=== PATIENT | female | born 1960 | race Caucasian/White ===

== ENCOUNTER 2021-08-18 06:36 | Inpatient (IN) | payer MEDICAID, SELFPAY ==
[2021-08-18] VITALS (69 sets, daily range): BP systolic 81–157; BP diastolic 55–111; PULSE 96–134; RESP 18–35; TEMP 36.4–37.7; O2SAT 94–100; BMI 25.2
--- NOTE | 2021-08-18 | ECHO_ITS ---
Patient Info Name: Kailyn Holder Age: 60 years : 1960 Gender: Female Ht: 57 in Wt: 145 lbs BSA: 1.66 m2 HR: 98 bpm BP: 96 / 82 mmHg Heart Rhythm: Tachycardia, Sinus Rhythm Technical Quality: Poor Exam Date: 08/18/2021 11:22 AM Exam Location: [facility] Pulmonary Exam Room: ER Patient Status: Inpatient Admit Date: 08/18/2021 Staff Ordering Physician: Betito Posadas MD Clinical Material Handler: Shadia Sanches RDCS Attending Provider: Durga Hancock MD Referring Physician: Cuauhtemoc RAMOS; Exam Type: CA echo doppler color flow Study Info Indications - ACS RESP FAILURE ELEVATED TROPONINS Complete two-dimensional, color flow and Doppler transthoracic echocardiogram is performed with contrast to opacify the left ventricle and to improve the deliniation of the left ventricle endocardial borders. Contrast/Agitated Saline Contrast/Ag. Saline: Definity Amount: 2.00 ml Administered By: Shadia Sanches [facility] Existing IV Access: Yes Reason for Poor Study: poor echocardiographic windows Summary 1. Left ventricular chamber dimension is normal. 2. Left ventricular systolic function is severely reduced, estimated at 25-30% with akinetic apical and mid segments with relative sparing of the bases. Consider Takotsubo cardiomyopathy. . 3. There is mildly increased left ventricular wall thickness. 4. The left ventricular diastolic function is abnormal. 5. There is no thrombus visualized in the left ventricle. Left Ventricle Left ventricular chamber dimension is normal. Left ventricular systolic function is severely reduced, estimated at 25-30% with akinetic apical and mid segments with relative sparing of the bases. Consider Takotsubo cardiomyopathy. . There is mildly increased left ventricular wall thickness. The left ventricular diastolic function is abnormal. There is no thrombus visualized in the left ventricle. Right Ventricle Right ventricular chamber dimension is normal. Right ventricular systolic function is normal. Left Atria Left atrial chamber dimension is normal. Right Atria Right atrial chamber dimension is normal. Aortic Valve The aortic valve is not well visualized. There is no aortic valve stenosis. There is no aortic valve regurgitation. Pulmonic Valve The pulmonic valve is not well visualized. Mitral Valve The mitral valve has normal leaflets. There is mild mitral valve regurgitation. The mitral valve annulus is mildly calcified. Tricuspid Valve The tricuspid valve leaflets are not well visualized. Unable to estimate PA systolic pressure due to poor spectral resolution of tricuspid regurgitant jet velocity. Pericardium/Pleural The pericardium appears normal. There is small pericardial effusion. Inferior Vena Cava Normal inferior vena cava with <50% collapse upon inspiration consistent with elevated right atrial pressure, 10 mmHg. Aorta The aortic root size at the sinus of Valsalva is normal. Left Ventricular Outflow Tract Name Value Normal LVOT 2D LVOT Diameter 2.0 cm LVOT Doppler LVOT Peak Gradient
--- NOTE | ~2021-08-18 | XR_ITS ---
EXAMINATION: XR chest 1V portable INDICATION: Respiratory failure TECHNIQUE: Portable AP chest at 0505 hours COMPARISON: 08/19/2021 FINDINGS: The endotracheal tube ends approximately 3.0 cm above the marylou. The nasogastric tube is f ollowed as far as the stomach. Its tip is beyond the inferior margin of the radiograph. The lungs are free of acute opacities. There is no pleural effusion or pneumothorax. The cardiomediastinal silhoue tte is normal. A calcified nodule of the left lower lobe is consistent with old granulomatous disease . IMPRESSION: 1. No acute cardiopulmonary abnormality. Reviewed, dictated and finalized at location A.
--- NOTE | ~2021-08-18 | XR_ITS ---
EXAMINATION: XR chest 1V portable INDICATION: Respiratory failure TECHNIQUE: Portable AP chest at 0525 hours COMPARISON: 08/20/2021 FINDINGS: The endotracheal tube ends approximately 1.7 cm above the marylou. The nasogastric tube is f ollowed as far as the stomach. Its tip is beyond the inferior margin of the radiograph. A right upper extremity PICC ends with its tip in the distal superior vena cava. The lungs are free of acute opaci ties. There is no pleural effusion or pneumothorax. The cardiomediastinal silhouette is normal. A davida cified nodule of the left lower lobe is consistent with old granulomatous disease. IMPRESSION: 1. No acute cardiopulmonary abnormality. Reviewed, dictated and finalized at location A.
--- NOTE | ~2021-08-18 | US_ITS ---
US abdomen limited DATE: 08/23/2021 09:27 INDICATION: Elevated liver enzymes TECHNIQUE: Real-time imaging and Doppler analysis COMPARISON: None FINDINGS: There is hepatic steatosis. No hepatic space-occupying mass lesion is evident. Normal hepat opedal portal venous flow direction. The pancreas is obscured by bowel gas. Some sludge is identified within the gallbladder. No gallstones or gallbladder wall thickening are no poli. Negative sonographic Pérez's sign. The common bile duct measures 6.8 mm, borderline in this patient of 60 years age. Recommend correlati on with serum bilirubin level. IMPRESSION: Gallbladder sludge Borderline common bile duct size at 6.8 mm; recommend correlation with serum bilirubin level Pancreas is obscured by bowel gas; this would be better evaluated by CT abdomen examination Reviewed, dictated and finalized at Location A. Reviewed, dictated and finalized at location A. IMPRESSION: Gallbladder sludge Borderline common bile duct size at 6.8 mm; recommend correlation with serum bi lirubin level Pancreas is obscured by bowel gas; this would be better evaluated by CT abdomen examination
--- NOTE | ~2021-08-18 | XR_ITS ---
EXAMINATION: XR chest ET placement, XR abdomen NG/feed tube insert DATE: 08/18/2021 13:00 INDICATION: Endotracheal tube placement. Orogastric tube insertion. TECHNIQUE: 1. Frontal view of the chest was obtained. 2. Frontal view of the abdomen was obtained. COMPARISON: Chest radiograph dated 08/18/21 FINDINGS: Chest: Endotracheal tube tip 5.2 cm above the marylou. Large calcified granuloma in the left lower lung zone. No other airspace opacities, pulmonary edema, pleural effusion or pneumothorax. The cardiomediastina l silhouette is normal. Abdomen: Nasogastric tube tip in proximal side port in the body of the stomach. No dilated loops of gas-filled bowel to suggest obstruction. Excreted contrast at the bilateral renal collecting systems related to the prior contrast-enhanced chest CT. IMPRESSION: 1. Nasogastric tube and endotracheal tube in expected positions. 2. No acute cardiopulmonary disease. Reviewed, dictated and finalized at location A. IMPRESSION: 1. Nasogastric tube and endotracheal tube in expected positions. 2. No acute cardiopulmonary disease.
--- NOTE | ~2021-08-18 | XR_ITS ---
EXAMINATION: XR chest 1V portable INDICATION: Respiratory failure TECHNIQUE: Portable AP chest at 0505 hours COMPARISON: 08/18/2021 FINDINGS: The endotracheal tube ends approximately 4.1 cm above the marylou. The nasogastric tube is f ollowed as far as the stomach. Its tip is beyond the inferior margin of the radiograph. The lungs are free of acute opacities. There is no pleural effusion or pneumothorax. The cardiomediastinal silhoue tte is normal in a calcified nodule of the left lower lobe is consistent with old granulomatous disea se. IMPRESSION: 1. No acute cardiopulmonary abnormality. Reviewed, dictated and finalized at location A.
--- NOTE | ~2021-08-18 | XR_ITS ---
EXAMINATION: XR chest 1V portable INDICATION: Respiratory failure TECHNIQUE: Portable AP chest at 0516 hours COMPARISON: 08/21/2021 FINDINGS: The endotracheal tube ends approximately 3.4 cm above the marylou. The nasogastric tube is f ollowed as far as the stomach. Its tip is beyond the inferior margin of the radiograph. A right upper extremity PICC ends with its tip in the distal superior vena cava. The lungs are free of acute opaci ties. There is no pleural effusion or pneumothorax. The cardiomediastinal silhouette is normal. A davida cified nodule of the left lower lobe is consistent with old granulomatous disease. IMPRESSION: 1. No acute cardiopulmonary abnormality. Reviewed, dictated and finalized at location A.
--- NOTE | ~2021-08-18 | XR_ITS ---
EXAMINATION: XR chest PICC line INDICATION: PICC insertion TECHNIQUE: Portable AP chest at 1056 hours COMPARISON: 1017 hours FINDINGS: A right upper extremity PICC has been inserted which ends with its tip in the distal superi or vena cava. There is no pneumothorax. The lungs are free of acute opacities. The cardiomediastinal silhouette silhouette is normal. The endotracheal tube ends approximately 3.1 cm above the marylou. Th e nasogastric tube is followed as far as the stomach. Its tip is beyond the inferior margin of the ra diograph. A calcified nodule of the left lower lobe is consistent with old granulomatous disease. IMPRESSION: 1. Right upper extremity PICC ending in the distal superior vena cava, otherwise no change. Reviewed, dictated and finalized at location A. IMPRESSION: 1. Right upper extremity PICC ending in the distal superior vena cava, otherwis e no change.
--- NOTE | ~2021-08-18 | CT_ITS ---
EXAMINATION: CTA chest PE protocol DATE: 08/18/2021 10:44 INDICATION: Shortness of breath TECHNIQUE: Computed tomography angiography (CTA) of the chest was performed with 100 mL Omnipaque-350 intravenous contrast timed to evaluate the pulmonary arteries. Coronal maximum intensity projection 3D-reconstructions were created by the technologist. The dose-length product (DLP) was 270.48 mGy-cm. Automated exposure control and iterative reconstruction technique were employed. COMPARISON: None. FINDINGS: The pulmonary arteries are well-opacified. No pulmonary embolism is identified. There is a 2.4 cm granuloma of the left lower lobe. There is a 3.6 x 3.0 cm subsolid nodule of the right upper l obe with a 1.5 cm solid component. No pathologically enlarged thoracic lymph nodes are identified. Th e heart size is normal. There is no pleural effusion or pneumothorax. There is mild thoracic spondylo sis. IMPRESSION: 1. No pulmonary embolus. 2. Subsolid nodule of the right upper lobe which could be infectious or inflammatory. Follow-up CT in three months is recommended. 3. Left lower lobe granuloma. Reviewed, dictated and finalized at location A. IMPRESSION: 1. No pulmonary embolus. 2. Subsolid nodule of the right upper lobe which could be infectious or inflamm atory. Follow-up CT in three months is recommended. 3. Left lower lobe granuloma.
--- NOTE | ~2021-08-18 | XR_ITS ---
EXAMINATION: XR chest 1V portable INDICATION: Hypotension TECHNIQUE: Portable AP chest at 1017 hours COMPARISON: 0505 hours FINDINGS: The endotracheal tube ends approximately 4.6 cm above the marylou. The nasogastric tube is f ollowed as far as the stomach. Its tip is beyond the inferior margin of the radiograph. The lungs are free of acute opacities. There is no pleural effusion or pneumothorax. The cardiomediastinal silhoue tte is normal. A calcified nodule of the left lower lobe is consistent with old granulomatous disease . IMPRESSION: 1. No acute cardiopulmonary abnormality. Reviewed, dictated and finalized at location A.
--- NOTE | ~2021-08-18 | XR_ITS ---
EXAMINATION: XR chest 1V portable INDICATION: Shortness of breath TECHNIQUE: Portable AP chest at 0710 hours COMPARISON: None available FINDINGS: There is mild atelectasis of the lung bases. There is a 2.7 cm nodule of the left lung base . There is no pleural effusion or pneumothorax. The cardiomediastinal silhouette is normal. IMPRESSION: 1. Mild atelectasis of the lung bases. 2. Nodule of the left lung base, possible granuloma. Follow-up with nonemergent chest CT is recommend ed. Reviewed, dictated and finalized at location A. IMPRESSION: 1. Mild atelectasis of the lung bases. 2. Nodule of the left lung base, possible granuloma. Follow-up with nonemergent chest CT is recommended.
--- NOTE | 2021-08-18 06:38 | ECG_ITS ---
Measurements Intervals [place] Rate: 133 P: 86 TN: 165 QRS: 88 QRSD: 81 T: 83 QT: 370 QTc: 551 Interpretive Statements SINUS TACHYCARDIA ANTEROSEPTAL INFARCT, AGE INDETERMINATE BASELINE ARTIFACT- I, II, III, AVR, AVL, AVF, V1-V6 ABNORMAL ECG Electronically Signed On 08-18-2021 7:47:24 CDT by Ryne Hickey D.O.
--- NOTE | 2021-08-18 06:41 | ED.GENADULT ---
HPI - General Adult General Chief complaint: Shortness of Breath/Dyspnea <Gael King MD - Last Filed: 08/18/21 19:19> Stated complaint: SOB <Gael King MD - Last Filed: 08/18/21 19:19> Time Seen by Provider: 08/18/21 06:40 <Gael King MD - Last Filed: 08/18/21 19:19> Source: patient, family, EMS and RN notes reviewed <Gael King MD - Last Filed: 08/18/21 19:19> Mode of arrival: EMS <Gael King MD - Last Filed: 08/18/21 19:19> Limitations: clinical condition <Gael King MD - Last Filed: 08/18/21 19:19> History of Present Illness HPI narrative: 60-year-old female presenting the emergency department for evaluation of shortness of breath. States her symptoms started approximately 9 PM last night. Patient has no prior history of COPD and is not on oxygen at home. When EMS arrived she was saturating at 80% on room air. Patient was given 4 of Decadron and given to breathing treatments of albuterol. Patient was placed on a nonrebreather. Upon arrival to the emergency department patient was speaking in one-word sentences. Patient denies any prior history of COPD. Patient is a smoker. <Gale King MD - Last Filed: 08/18/21 19:19> Related Data Allergies/adverse reactions: Allergies Allergy/AdvReac Type Severity Reaction Status Date / Time No Known Allergies Allergy Verified 08/18/21 06:53 <Gael King MD - Last Filed: 08/18/21 19:19> Review of Systems Review of Systems: CONSTITUTIONAL: Denies fever, chills, or sweats. EYES: Denies visual changes, redness, or discharge. ENT: Denies rhinorrhea, congestion, sore throat, or otalgia. CARDIOVASCULAR: Denies chest pain, palpitations, or edema. RESPIRATORY: See HPI GASTROINTESTINAL: Denies abdominal pain, nausea, vomiting, or diarrhea. GENITOURINARY: Denies dysuria or hematuria. SKIN: Denies rash or itching. MUSCULOSKELETAL: Denies back pain, joint pain, or myalgia. NEUROLOGIC: Denies headache, numbness, or weakness. <Gael King MD - Last Filed: 08/18/21 19:19> ROS unobtainable: Yes unobtainable due to medical condition <Gael King MD - Last Filed: 08/18/21 19:19> [facility] Past Medical History Medical History: Medical History No pertinent past medical history <Gael King MD - Last Filed: 08/18/21 19:19> Family History Family History: Family History Father Acute myocardial infarction Diabetes mellitus <Gael King MD - Last Filed: 08/18/21 19:19> Social History Social History: Social History Smoking packs per day: 0.5 Smoking cigarettes per day: 10.0 Smoking status: Current every day smoker Tobacco type: cigarettes Alcohol intake: current Drinks per week: 10 Substance use: never Spiritual care concerns: No <Gael King MD - Last Filed: 08/18/21 19:19> Exam Narrative: APPEARANCE: Respiratory distress HEAD: normocephalic, atraumatic. EYES: PERRLA/EOMI, conjunctivae clear. NOSE: Normal no drainage NECK: Supple. No adenopathy, no masses. RESPIRATORY: Wheeze bilaterally, decreased breath sounds CARDIOVASCULAR: Tachycardic with regular rhythm ABDOMINAL: Soft, nontender, nondistended, normal bowel sounds MUSCULOSKELETAL: Moves all extremities. Strength/ROM intact, No edema, No calf tenderness. NEURO: Alert. Cranial nerves II through XII intact. Grossly intact SKIN: Warm, dry. Normal Color <Gael King MD - Last Filed: 08/18/21 19:19> Course Course Emergency Course: Patient was placed on BiPAP and a continuous neb of 10 mg albuterol 2 mg Atrovent was started <Gael King MD - Last Filed: 08/18/21 19:19> I assumed care of this patient at shift change with pending labs, x-rays. Patient was placed on BiPAP. I reexamined t
[2021-08-18 06:50] LABS: Basophils Absolute Auto 0.1 K/mm3 (0.0-0.1); Basophils Percent Auto 0.4 % (0.2-1.2); Eosinophils Percent Auto 0.1 % (0-4.4); Hematocrit 43.4 % (37.0-47.0); Hemoglobin 14.4 g/dL (12.0-15.0); Immature Granulocyte Absolute 0.16 K/mm3 (0.00-0.031); Immature Granulocyte Percent A 0.6 % (0-0.5); Lymphocytes Percent Auto 10.1 % (18.3-44.2); Mean Corpuscular HGB Conc 33.2 g/dl (32-36); Mean Corpuscular Hemoglobin 31.2 pg (26-34); Mean Corpuscular Volume 94.1 fl (80-100); Mean Platelet Volume 9.4 fl (7.4-10.4); Monocytes Absolute Auto 0.6 K/mm3 (0.1-0.6); Monocytes Percent Auto 2.4 % (2.6-8.5); Neutrophils Absolute Auto 23.1 K/mm3 (1.3-6.7); Neutrophils Percent Auto 86.4 % (45.5-73.1); Platelet Count Result 306 k/mm3 (150-375); Red Blood Count 4.61 M/mm3 (4.2-5.4); Red Cell Distribution Width 13.1 % (11.5-14.5); White Blood Count 26.7 K/mm3 (4.5-10.0)
[2021-08-18] MEDS: ALBUTEROL SULFATE NEB 2.5 MG/0.5 ML INH 10 MG INHALATION (06:53)
[2021-08-18] MEDS: IPRATROPIUM BR 0.02% INH SOLN 0.5 MG/2.5 ML VIAL 2 MG INHALATION (06:54)
[2021-08-18] MEDS: SODIUM CHLORIDE 0.9% IV 1,000 ML 999 ML IV CONT (06:54)
[2021-08-18 07:00] LABS: Alanine Aminotransferase 26 U/L (6-35); Albumin Level 4.9 g/dL (3.5-5.1); Alkaline Phosphatase 100 U/L (38-126); Anion Gap 13 mmol/L (8-16); Aspartate Amino Transferase 41 U/L (14-36); Bilirubin,Total 0.8 mg/dL (0.2-1.3); Blood Urea Nitrogen 12 mg/dL (7-17); Calcium 9.1 mg/dL (8.4-10.2); Carbon Dioxide 21 mmol/L (22-30); Chloride 106 mmol/L (98-107); Estimated CRCL calculation 57 ml/min; Estimated Glomerular Filt Rate > 60; Glucose 266 mg/dL (65-110); Potassium 3.8 mmol/L (3.4-5.0); Sodium 140 mmol/L (137-145)
--- NOTE | 2021-08-18 07:21 | ECG_ITS ---
Measurements Intervals [place] Rate: 122 P: 77 MD: 167 QRS: 95 QRSD: 78 T: 85 QT: 414 QTc: 592 Interpretive Statements SINUS TACHYCARDIA RIGHT AXIS DEVIATION SUBTLE ST ELEVATION IN ANTERIOR LEADS- CONSIDER ACUTE INFARCT BASELINE ARTIFACT- I, II, III, AVR, AVL, AVF, V1-V6 ABNORMAL ECG Electronically Signed On 08-18-2021 7:52:25 CDT by Ryne Hickey D.O.
[2021-08-18 07:31] LABS: Alveolar/Arterial O2 Gradient 303.8 mmHg; Base Excess ABG -7.7 mEq/l (+/-2.0); Fractional Inspired Oxygen 100 %; HCO3 ABG 18.6 mEq/l (22.0-26.0); Oxygen Content ABG 18.9 %vol (16.0-22.0); Oxygen Saturation ABG 99.7 % (95.0-100.0); Oxyhemoglobin 98.3 % THb (90.0-100.0); PCO2 ABG 40.3 mmHg (35.0-45.0); PO2 ABG 368.9 mmHg (80.0-100.0); PO2 FiO2 Ratio Arterial Blood 3.69 %
[2021-08-18 07:32] LABS: Device BIPAP; Expiratory Pressure 7 cmH2O; Inspiratory Pressure 14 cmH2O; Modified Allen's Test Pass; Site Drawn RIGHT RADIAL; pH ABG 7.281 (7.350-7.450)
[2021-08-18 07:49] LABS: NT Pro B Type Natriuretic Pept 708 pg/mL (5-100)
[2021-08-18 07:55] LABS: SARS-CoV-2 RNA PCR Negative
[2021-08-18] MEDS: ASPIRIN 81 MG CHEWABLE TABLET 324 MG PO (08:43)
--- NOTE | 2021-08-18 08:50 | ECG_ITS ---
Measurements Intervals [place] Rate: 110 P: 75 NE: 140 QRS: 85 QRSD: 84 T: 91 QT: 306 QTc: 416 Interpretive Statements SINUS TACHYCARDIA ST ELEVATION IN ANTERIOR LEADS- CONSIDER ACUTE INFARCT BASELINE ARTIFACT- I, II, III, AVR, AVL, AVF, V3-V6 ABNORMAL ECG Electronically Signed On 08-20-2021 9:16:13 CDT by Ryne Hickey D.O.
--- NOTE | 2021-08-18 09:33 | PM.CNCAR ---
Assessment and Plan Assessment and plan (1) Acute coronary syndrome with high troponin: Code(s): I24.9 - Acute ischemic heart disease, unspecified Status: Acute Assessment and Plan: Unusual presentation with highly atypical symptoms without chest pain at any time with EKG evidence of anteroseptal ID possibly recent with residual subtle ST elevations possibly consistent with late presentation STEMI. Complicated by acute hypoxic respiratory failure requiring BiPAP support. Troponin elevated 3.7. Trend serially. Repeat 12 lead EKG reviewed no changes since presentation. Discussed with Dr. Roe of Interventional Cardiology regarding recommendations for coronary angiography. Dr. Roe will also personally evaluate the patient at bedside and make a final determination. Aspirin, statin, respiratory support, systemic anticoagulation. Discussed with the patient, mother and daughter at bedside. Risks, benefits, and alternatives of coronary angiography explained in detail including but not limited to bleeding/infection, ID, stroke, and/or . They verbalized understanding and agreed with plan of care. Explained I would will discuss with Dr. Roe with his recommendations to follow. All questions answered to their satisfaction. 2D echocardiogram now to assess LV size/function, valve pathology pulmonary pressures. This is an unusual presentation however given the balance of abnormalities concern for subacute STEMI versus NSTEMI. Patient is quite ill. Recommendation to follow. Check lipid panel. (2) Abnormal ECG: Code(s): R94.31 - Abnormal electrocardiogram [ECG] [EKG] Status: Acute Assessment and Plan: As above, suggestive of anteroseptal ID possibly recent with residual subtle ST-elevation (3) Acute respiratory distress: Code(s): R06.03 - Acute respiratory distress Status: Acute Assessment and Plan: Continue supportive management with bronchodilators, BiPAP, O2 supplementation. Patient may be best served with intubation prior to proceeding with coronary angiography for improved clinical stability. BNP mildly elevated at 705 although chest x-ray is not consistent with significant volume overload. Trial of diuretics reasonable 40 mg Lasix IV x1. (4) Tobacco abuse: Code(s): Z72.0 - Tobacco use Status: Acute Assessment and Plan: Immediate and absolute smoking cessation counseling performed. (5) Hyperglycemia: Code(s): R73.9 - Hyperglycemia, unspecified Status: Acute Assessment and Plan: Workup per hospitalist service. May be exacerbated due to acute illness although concerning for underlying diabetes mellitus. Check hemoglobin A1c. (6) Hypertension: Code(s): I10 - Essential (primary) hypertension Status: Acute Assessment and Plan: Elevated but stable at present. (7) Leukocytosis: Code(s): D72.829 - Elevated white blood cell count, unspecified Status: Acute Assessment and Plan: Significant leukocytosis with left shift concerning for infectious process with reported chills although infiltrate noted appreciated chest x-ray. Monitor closely. History of Present Illness History of Present Illness Consult date/time: Date of service: 08/18/21 09:33 Cardiology consultation at the request of Dr. Garcias of Emergency Department for elevated troponin, abnormal EKG Requesting physician: Aristeo Garcias MD Consult reason: shortness of breath and Other (Elevated troponin, abnormal EKG) Reason For Visit: Nstemi, respiratory distress Narrative: Patient is a very pleasant 60-year-old female with no noted significant past medical history aside from tobacco abuse presents emergency department with progressive shortness of breath. Patient states yesterday around 2:00 p.m. she began to note nasal and head congestion which then later progressed throughout the afternoon and evening shortness of breath, chills,
--- NOTE | 2021-08-18 09:34 | PC.NURSE ---
Cardiology at bedside.
[2021-08-18] MEDS: SODIUM CHLORIDE 0.9% IV 1,000 ML 150 ML IV CONT (10:05)
[2021-08-18] MEDS: PERFLUTREN LIPID MICROSPHERES 1.5 ML VIAL DILUTED TO 10 ML TOTAL VOLUME IV PUSH (11:35)
--- NOTE | 2021-08-18 11:35 | IVDEFINITY ---
Prior to administration of IV Definity the patient was educated on the risks and benefits of the imaging enhancing agent including potential adverse side effects. The patient verbalized understanding. Allergies were verified. No exclusion criteria were identified and at least one of the following inclusion criteria were met: 1) physician request, 2) patient technically difficult to image (per the [place] [employer] of Echocardiography guidelines of two or more segments not discernable within the apical view), or 3) questionable left ventricular function. ?
[2021-08-18] MEDS: IPRATROPIUM BR 0.02% INH SOLN 0.5 MG/2.5 ML VIAL INHALATION ×3 (11:48→20:33)
[2021-08-18] MEDS: ALBUTEROL SULFATE NEB 2.5 MG/3 ML INH 1.25 MG INHALATION (11:48)
--- NOTE | 2021-08-18 12:08 | PC.NURSE ---
This patient, Kailyn Holder, was admitted to Intensive Care Unit-2. Patient/family oriented to hospital policies and general routines including ID bracelet, bed and alarms, visiting hours, pain management, procedures, bathroom and other care routines, personal items, smoking policy, room service/diet, and visiting hours. Information on how to activate the Rapid Response Team has been discussed. Patient/Family are encouraged to report perceived risks to care and to ask questions if they do not understand what they are told or what they should do.
[2021-08-18] MEDS: ALBUTEROL SULFATE NEB 2.5 MG/0.5 ML INH 5 MG INHALATION ×2 (13:06→20:32)
--- NOTE | 2021-08-18 13:09 | WPDMODSED ---
Moderate Sedation Note-Pt Data Patient Data Diagnosis: Evidence of recent anterior wall MA patient developing picture of cardiogenic shock with intubation in the emergency room Present Complaint: intubated and sedated Procedure to be performed/Plan: left heart catheterization possible placement of Impella assist device Allergies Allergy/AdvReac Type Severity Reaction Status Date / Time No Known Allergies Allergy Verified 08/18/21 06:53 Current Medications: Active Medications Acetaminophen (Acetaminophen 325 Mg Tablet) 650 mg PO Q4H PRN PRN Reason: Mild Pain (1-3) or Fever Albuterol (Albuterol Sulfate Neb 2.5 Mg/0.5 Ml Inh) 5 mg INHALATION Q6HRT [facility] Last Admin: 08/18/21 13:06 Dose: 5 mg Documented by: Aspirin (Aspirin 81 Mg Chewable Tablet) 81 mg PO DAILY@0800 JENSEN Sodium Chloride (Normal Saline Iv) 1,000 mls @ 150 mls/hr IV CONT .Q6H40M STA Stop: 08/18/21 16:25 Last Admin: 08/18/21 10:05 Dose: 150 mls/hr Documented by: Sodium Chloride (Normal Saline Iv) 1,000 mls @ 125 mls/hr IV CONT .Q8H JENSEN Propofol (Diprivan) 100 mls @ 2.004 mls/hr IV CONT .[id number] JENSEN; Protocol Ipratropium [place] (Ipratropium Br 0.02% Inh Soln 0.5 Mg/2.5 Ml Vial) 0.5 mg INHALATION Q6HRT [facility] Last Admin: 08/18/21 13:06 Dose: 0.5 mg Documented by: Morphine Sulfate (Morphine Sulfate (*Crx) 4 Mg/Ml Inj) 4 mg IV PUSH Q2H PRN PRN Reason: Pain Rated 7-10 Multi-Ingred Cream/Lotion/Oil/Oint (Mineral Oil/White Petrolatum Ointment) 1 applic EACH EYE Q12HR [facility] Nitroglycerin (Nitroglycerin Sl 0.4 Mg Tablet) 0.4 mg SUBLINGUAL Q5MIN PRN PRN Reason: Chest Pain Nitroglycerin (Nitroglycerin Ointment 1 Inch Dose) 1 inch TRANSDERM Q6HR [facility] Ondansetron HCl (Ondansetron Inj 4 Mg/2 Ml Vial) 4 mg IV PUSH Q4H PRN PRN Reason: Nausea Sedation/Anesthesia: No previous sedation/anesthesia problems (including family history). [facility] Past Medical History Medical History No pertinent past medical history Family History Family History Father Acute myocardial infarction Diabetes mellitus Social History Social History Smoking packs per day: 0.5 Smoking cigarettes per day: 10.0 Smoking status: Current every day smoker Tobacco type: cigarettes Alcohol intake: never Substance use: never Mod Sed Physical Exam Physical Exam Pre Procedural Exam: Normal: Appearance, Throat, Airway, Heart Rhythm, Neuro Exam and Extremities ( cool) and Variation: Lungs ( diminished breath sounds bilaterally), Heart Size ( PMI enlarged) and Heart Rate ( tachycardic) Hours since solid foods: 8 Hours since liquid intake: 8 Mallampati Classification: class III Internal Medicine - PN: Obj Da Vital Signs Vital Signs: Vital Signs - 24 hr 08/18/21 06:33 08/18/21 06:40 08/18/21 06:54 Temperature 37.1 C Pulse Rate 134 H 133 H 124 H Respiratory Rate 34 H 25 H Blood Pressure 157/107 H Pulse Oximetry 96 100 08/18/21 06:57 08/18/21 07:28 08/18/21 07:30 Temperature Pulse Rate 118 H 115 H 123 H Respiratory Rate 26 H 24 H 33 H Blood Pressure 105/84 Pulse Oximetry 100 100 08/18/21 07:31 08/18/21 07:46 08/18/21 08:02 Temperature Pulse Rate 118 H 113 H Respiratory Rate 32 H 31 H 25 H Blood Pressure 125/83 Pulse Oximetry 100 100 100 08/18/21 08:15 08/18/21 08:16 08/18/21 08:34 Temperature Pulse Rate 107 H 106 H 104 H Respiratory Rate 23 H 23 H 22 H Blood Pressure 116/88 Pulse Oximetry 100 100 100 08/18/21 08:45 08/18/21 08:46 08/18/21 09:04 Temperature Pulse Rate 110 H 115 H 112 H Respiratory Rate 23 H 30 H 26 H Blood Pressure 109/86 Pulse Oximetry 100 100 100 08/18/21 09:15 08/18/21 09:16 08/18/21 09:30 Temperature Pulse Rate 108 H 108 H 124 H Respiratory Rate 31 H 24 H 23 H Blood Pressure 81/55 L 96/82 L Pulse Oximetry 100 100 100 05
[2021-08-18] MEDS: PROPOFOL IV EMULSION 100 ML 6.01 MG IV CONT (13:12)
--- NOTE | 2021-08-18 13:14 | WPDCNINT ---
Assessment and Plan Assessment and plan (1) Acute coronary syndrome with high troponin: Code(s): I24.9 - Acute ischemic heart disease, unspecified Status: Acute Assessment and Plan: Acute coronary syndrome with elevated troponins, likely STEMI late presentation -patient does not have any history of coronary artery disease -echocardiogram done today reveals severe cardiomyopathy -discussed with Cardiology, will intubate the patient, place her on the mechanical ventilation and then she will be taken to the cardiac grass farm laborer for evaluation of her coronary arteries. -patient was started on aspirin, statin, when she arrived to the ICU she was intubated emergently and was taken to cardiac grass farm laborer urgently so was not started on any heparin infusion (2) Acute respiratory failure: Code(s): J96.00 - Acute respiratory failure, unspecified whether with hypoxia or hypercapnia Status: Acute Assessment and Plan: Acute respiratory failure likely related to acute coronary syndrome, possible undiagnosed obstructive lung disease -patient has some expiratory wheezes -currently intubated on CMV mode of ventilation, 60% FiO2 and PEEP of 5 with adequate O2 sats -will start bronchodilators, steroids, antibiotics for possible undiagnosed obstructive lung disease exacerbation -sedated with propofol -maintain RASS of 0 to -2, daily sedation vacation Chest x-ray reviewed, will obtain post intubation ABGs 08/18/2021: CTA chest IMPRESSION: 1. No pulmonary embolus. 2. Subsolid nodule of the right upper lobe which could be infectious or inflammatory. Follow-up CT in three months is recommended. 3. Left lower lobe granuloma. (3) Tobacco abuse: Code(s): Z72.0 - Tobacco use Status: Acute Assessment and Plan: Patient was counseled on cessation of tobacco use and smoking marijuana (4) Cardiomyopathy: Code(s): I42.9 - Cardiomyopathy, unspecified Status: Acute Assessment and Plan: 08/18/2021 echocardiogram: 1. Left ventricular chamber dimension is normal. 2. Left ventricular systolic function is severely reduced, estimated at 25-30% with akinetic apical and mid segments with relative sparing of the bases. Consider Takotsubo cardiomyopathy. . 3. There is mildly increased left ventricular wall thickness. 4. The left ventricular diastolic function is abnormal. 5. There is no thrombus visualized in the left ventricle. Patient be taken to the grass farm laborer, may require balloon pump or Impella per Cardiology Will hold IV fluids (5) Hypertension: Code(s): I10 - Essential (primary) hypertension Status: Acute Assessment and Plan: Currently on propofol, blood pressures are stable, will continue to monitor (6) Leukocytosis: Code(s): D72.829 - Elevated white blood cell count, unspecified Status: Acute Assessment and Plan: Likely reactive Patient is started on ceftriaxone (7) Hyperglycemia: Code(s): R73.9 - Hyperglycemia, unspecified Status: Acute Assessment and Plan: Patient does not have any known diabetes, will obtained hemoglobin A1c -start Accu-Cheks and sliding scale insulin Additional Plan Discussed with patient and her mother Radha, updated them with patient's condition and plan of care. Both of them aware that patient will be getting intubated and going to cardiac grass farm laborer for a coronary angiogram. They are agreeable, will discussed with them that patient be sedated during the course of intubation and a cardiac procedure Code status: Full code Critical care time spent: 53 minutes This dictation may have been done utilizing a voice recognition system. Attempts have been made to correct errors. However, there may be uncorrected grammatical, spelling, and recognition errors present. Due to a high probability of clinically significant, life threatening deterioration, the patient required my highest level of preparedness to int
--- NOTE | 2021-08-18 13:55 | PM.IMHP ---
H&P: HPI History of Present Illness Date/Time: Patient requires inpatient monitoring with expected length of stay to exceed 2 midnights for management of care. 08/18/21 1245 Chief Complaint: Shortness of breath Narrative: Ms. Holder is a 60-year-old female who presented to the emergency room with complaints of shortness of breath began this morning very suddenly. It is difficult to get a full history from the patient since she is wearing BiPAP and states that it is difficult to talk. Patient states that she had a sudden onset of shortness of breath this morning but denies any chest pain, lightheadedness, dizziness, or palpitations. Patient denies having any past medical history. Patient states she does smoke half pack of cigarettes a day and has done so for 22 years. Upon evaluation in emergency room patient was noted to have an increased work of breathing and was placed on BiPAP. Patient was given multiple nebulizer treatments and had been given Decadron by EMS and brought to the hospital. Laboratories were drawn in the emergency room was noted the patient's troponin was elevated and Cardiology was consulted. Patient's EKG did show some questionable ST elevation in the anterior septal leads and an echo Doppler was performed. Is decided at that time patient may need to go to the cardiac catheterization lab emergently. Review of Systems Review of Systems: Unable to obtain a full review of systems secondary to patient's clinical condition. [facility] Past Medical History Medical History No pertinent past medical history Family History Family History Father Acute myocardial infarction Diabetes mellitus Social History Social History Smoking packs per day: 0.5 Smoking cigarettes per day: 10.0 Smoking status: Current every day smoker Tobacco type: cigarettes Alcohol intake: never Substance use: never Meds Home Medications and Allergies Allergies Allergy/AdvReac Type Severity Reaction Status Date / Time No Known Allergies Allergy Verified 08/18/21 06:53 Vital Signs Vital Signs - 24 hr 08/18/21 06:33 08/18/21 06:40 08/18/21 06:54 Temperature 37.1 C Pulse Rate 134 H 133 H 124 H Respiratory Rate 34 H 25 H Blood Pressure 157/107 H Pulse Oximetry 96 100 08/18/21 06:57 08/18/21 07:28 08/18/21 07:30 Temperature Pulse Rate 118 H 115 H 123 H Respiratory Rate 26 H 24 H 33 H Blood Pressure 105/84 Pulse Oximetry 100 100 08/18/21 07:31 08/18/21 07:46 08/18/21 08:02 Temperature Pulse Rate 118 H 113 H Respiratory Rate 32 H 31 H 25 H Blood Pressure 125/83 Pulse Oximetry 100 100 100 08/18/21 08:15 08/18/21 08:16 08/18/21 08:34 Temperature Pulse Rate 107 H 106 H 104 H Respiratory Rate 23 H 23 H 22 H Blood Pressure 116/88 Pulse Oximetry 100 100 100 08/18/21 08:45 08/18/21 08:46 08/18/21 09:04 Temperature Pulse Rate 110 H 115 H 112 H Respiratory Rate 23 H 30 H 26 H Blood Pressure 109/86 Pulse Oximetry 100 100 100 08/18/21 09:15 08/18/21 09:16 08/18/21 09:30 Temperature Pulse Rate 108 H 108 H 124 H Respiratory Rate 31 H 24 H 23 H Blood Pressure 81/55 L 96/82 L Pulse Oximetry 100 100 100 08/18/21 09:47 08/18/21 10:00 08/18/21 10:01 Temperature Pulse Rate 105 H 103 H 114 H Respiratory Rate 25 H 25 H 35 H Blood Pressure 104/83 Pulse Oximetry 100 100 98 08/18/21 10:28 08/18/21 10:30 08/18/21 10:31 Temperature Pulse Rate 97 101 H Respiratory Rate 21 H 26 H Blood Pressure 102/74 Pulse Oximetry 100 100 08/18/21 10:48 08/18/21 11:49 08/18/21 12:25 Temperature 36.4 C L Pulse Rate 114 H 105 H 118 H Respiratory Rate 26 H 24 H 35 H Blood Pressure 127/111 H Pulse Oximetry 100 100 100 08/18/21 12:29 08/18/21 12:33 08/18/21 13:03 Temperature 36.4 C L Pulse Rate
--- NOTE | 2021-08-18 14:07 | WPDPROCEDUR ---
Procedures Intubation Intubation Date: 08/18/21 Intubation Time: 12:45 A pre-procedural Time-Out was completed immediately before starting the procedure and confirmed: Patient Identification, Site, Procedure, Patient Position and the Availability of Requisite Equipment: Yes Sedative: etomidate Mg given: 20 Paralytic: rocuronium Mg given: 50 Laryngoscope: fiber optic video scope ET tube size: 7.5 Tube secured depth (cm): 23 Tube secured location: lips Tube placement confirmation: visualized tube passing through cords, equal breath sounds bilaterally and confirmation by capnometry Patient tolerated procedure: well and no complications Intubation complications: none Additional comments: [place] by Dr. Simons
[2021-08-18 14:23] LABS: Lactic Acid Reflex 3.5 mmol/L (0.7-2.0)
--- NOTE | 2021-08-18 14:32 | WPDCARDPROC ---
Cardiac Cath Procedure Note Date of procedure:: 08/18/21 Performing physician:: Adelfo Roe MD Indication:: shortness of breath, respiratory extremis and suspected recent anterior FL Brief clinical history:: this is a 60-year-old woman without previous medical history presented the hospital with severe shortness of breath. She was on a BiPAP device and then shortly following admission to the ICU required intubation. Electrocardiogram suggests that of previous anterior wall infarction has occurred. She is having no chest pain on arrival. Troponin levels are moderately elevated. In this setting an angiogram is being recommended. There is concern about the potential need for advanced hemodynamic support. Procedure Procedure performed:: Coronary angiography left ventriculography peripheral artery angiography Sedation/Medication given:: patient on IV propofol infusion no additional sedation provided in the pathology laboratory aides teacher case start time 1:49 p.m. case end time 2:14 p.m. Access site:: right femoral artery Estimated blood loss:: 25 cc Procedure note:: patient was brought to the cardiac catheterization lab from the ICU intubated and on ventilator support. The right femoral triangle was prepped and draped in the normal fashion. Anesthesia was given with 1% lidocaine. Following this right femoral artery was punctured and a 5 Tajik vascular sheath was placed. After this a 5 Tajik JR4 catheter was used to engage and inject the right coronary artery. A 5 Tajik FL4 catheter was used to engage and inject the left coronary artery. Following this a 5 Tajik angled pigtail catheter was used to measure left-sided hemodynamics and to inject LV g in the PANTOJA projection. Pullback pressures were documented across the aortic valve. Following this angiogram was done of the femoral through the sheath and then used the JR4 catheter to perform an angiogram of the left iliofemoral system from the aortic bifurcation. After this the case was terminated the patient was taken to the ICU for sheath removal and further treatment and recovery. Findings:: Central aortic pressure 116 over 74 left ventricle 116 over 16 end-diastolic pressure 40. No gradient on across the aortic valve. Left ventricle: The LV is mildly enlarged globular in shape the base of the anterior wall and base of the infero posterior wall contract well the remainder of the LV is totally akinetic the apex is frankly dyskinetic. Global ejection fraction I would visually estimate to be about 20%. The left main coronary artery is nicely patent the left anterior descending is a medium caliber artery extending down to around the apex. The LAD and its diagonal septal branches are smooth and angiographically normal in appearance circumflex is a moderate caliber artery giving rise to the marginal branches. The circumflex system is angiographically smooth and normal in appearance the right coronary artery is large in caliber in the trunk of the RCA and is smooth and angiographically normal. The RPDA and RPL branches are patent relatively small but free of disease. The right femoral artery following injection through the sheath is quite small in size and not suitable for accommodating a 14 Tajik sheath for Impella support catheter. Similarly they left iliofemoral system is small and again not suitable for large-bore access for fear of resulting in limb ischemia Conclusion:: 1. severe shortness of breath cardiomyopathy as described above appears to be an acute process most compatible with takotsubo stress cardiomyopathy although unusually severe with very high LVEDP 2. right coronary dominant circulation with no evidence of coronary disease 3. small iliac and femoral vessels bilaterally which do not appear to be suitable for large-bore access for Impella support catheter Adelfo Roe MD [facility]
[2021-08-18] MEDS: PROPOFOL IV EMULSION 100 ML 12.02 MG IV CONT (14:45)
[2021-08-18] MEDS: methylPREDNISolone SOD SUCC 125 MG VIAL IV PUSH (15:10)
[2021-08-18] MEDS: MIDAZOLAM HCL (*CRX) 2 MG/2 ML VIAL IV PUSH ×2 (15:11→17:35)
[2021-08-18 15:15] LABS: Glucose Point of Care 302 mg/dl (65-105)
[2021-08-18 16:04] LABS: Hemoglobin A1C 4.9 % (<5.7)
[2021-08-18 16:54] LABS: Alveolar/Arterial O2 Gradient 134.7 mmHg; Base Excess ABG -10.9 mEq/l (+/-2.0); Fractional Inspired Oxygen 40 %; HCO3 ABG 18.7 mEq/l (22.0-26.0); Oxygen Content ABG 18.4 %vol (16.0-22.0); Oxygen Saturation ABG 92.7 % (95.0-100.0); Oxyhemoglobin 92.7 % THb (90.0-100.0); PCO2 ABG 57.5 mmHg (35.0-45.0); PO2 ABG 84.4 mmHg (80.0-100.0); PO2 FiO2 Ratio Arterial Blood 2.11 %; Total Hemoglobin 14.1 g/dL (12.0-18.0)
[2021-08-18 16:55] LABS: Arterial Blood Gas Ventilator rate 22 /MIN; Device VENTILATOR; Modified Allen's Test Pass; Site Drawn RIGHT RADIAL; pH ABG 7.131 (7.350-7.450)
[2021-08-18 16:56] LABS: Arterial Blood Gas PEEP 5 cmH2O; Arterial Blood Gas Tidal Volume 350 ml; Arterial Blood Gas Vent Mode CMV
[2021-08-18 17:03] LABS: Reflex Lactic Acid Yes or No Add Lactic
[2021-08-18] MEDS: methylPREDNISolone SOD SUCC 40 MG VIAL IV PUSH ×2 (17:22→23:49)
[2021-08-18] MEDS: SODIUM BICARBONATE 8.4% 50 MEQ/50 ML SYRINGE IV PUSH (17:25)
[2021-08-18 17:27] LABS: Glucose Point of Care 142 mg/dl (65-105)
[2021-08-18 18:21] LABS: Lactic Acid 4.1 mmol/L (0.7-2.0)
[2021-08-18] MEDS: MIDAZOLAM 100MG/NS 100ML(*CRX) 100 MG/100 ML BAG IV CONT (18:32)
[2021-08-18] MEDS: PROPOFOL IV EMULSION 100 ML 18.04 MG IV CONT (19:39)
[2021-08-18 20:19] LABS: Alveolar/Arterial O2 Gradient 132.2 mmHg; Fractional Inspired Oxygen 40 %; HCO3 ABG 23.4 mEq/l (22.0-26.0); Oxygen Content ABG 18.6 %vol (16.0-22.0); Oxyhemoglobin 96.3 % THb (90.0-100.0); PCO2 ABG 46.9 mmHg (35.0-45.0); PO2 ABG 99.1 mmHg (80.0-100.0); PO2 FiO2 Ratio Arterial Blood 2.48 %; Total Hemoglobin 13.7 g/dL (12.0-18.0); pH ABG 7.316 (7.350-7.450)
[2021-08-18] MEDS: SACUBITRIL/VALSARTAN 12-13 MG TABLET 1 TAB PO (20:22)
[2021-08-18] MEDS: MINERAL OIL/WHITE PETROLATUM OINTMENT 1 APPLIC EACH EYE (20:22)
[2021-08-18] MEDS: carvediloL 3.125 MG TABLET PO (20:22)
[2021-08-18 20:57] LABS: Influenza A QL RT-PCR Negative (Negative); Influenza B QL RT-PCR Negative (Negative)
[2021-08-18 21:42] LABS: Device VENTILATOR; Modified Allen's Test Pass; Site Drawn LEFT RADIAL
[2021-08-18 21:43] LABS: Arterial Blood Gas PEEP 5 cmH2O; Arterial Blood Gas Tidal Volume 380 ml; Arterial Blood Gas Vent Mode CMV; Arterial Blood Gas Ventilator rate 26 /MIN
[2021-08-18 22:59] LABS: Lactic Acid Reflex 3.2 mmol/L (0.7-2.0)
[2021-08-18 23:56] LABS: Glucose Point of Care 132 mg/dl (65-105)
[2021-08-19] VITALS (49 sets, daily range): BP systolic 84–136; BP diastolic 61–85; PULSE 88–111; RESP 23–32; TEMP 36.9–37.6; O2SAT 91–100; BMI 26.7
[2021-08-19] MEDS: ALBUTEROL SULFATE NEB 2.5 MG/0.5 ML INH 5 MG INHALATION ×4 (01:58→20:30)
[2021-08-19] MEDS: IPRATROPIUM BR 0.02% INH SOLN 0.5 MG/2.5 ML VIAL INHALATION ×4 (01:58→20:30)
[2021-08-19] MEDS: PROPOFOL IV EMULSION 100 ML 10.02 MG IV CONT (02:22)
[2021-08-19 05:01] LABS: Basophils Percent Auto 0.1 % (0.2-1.2); Hematocrit 37.7 % (37.0-47.0); Hemoglobin 12.6 g/dL (12.0-15.0); Immature Granulocyte Absolute 0.13 K/mm3 (0.00-0.031); Immature Granulocyte Percent A 0.7 % (0-0.5); Lymphocytes Absolute Auto 0.76 K/mm3 (0.9-3.2); Lymphocytes Percent Auto 4.2 % (18.3-44.2); Mean Corpuscular HGB Conc 33.4 g/dl (32-36); Mean Corpuscular Hemoglobin 30.9 pg (26-34); Mean Corpuscular Volume 92.4 fl (80-100); Mean Platelet Volume 9.4 fl (7.4-10.4); Monocytes Absolute Auto 0.4 K/mm3 (0.1-0.6); Monocytes Percent Auto 2.1 % (2.6-8.5); Neutrophils Absolute Auto 16.8 K/mm3 (1.3-6.7); Neutrophils Percent Auto 92.9 % (45.5-73.1); Platelet Count Result 201 k/mm3 (150-375); Red Blood Count 4.08 M/mm3 (4.2-5.4); Red Cell Distribution Width 13.5 % (11.5-14.5)
[2021-08-19 05:08] LABS: Alveolar/Arterial O2 Gradient 102.6 mmHg; Base Excess ABG 0.9 mEq/l (+/-2.0); Carboxyhemoglobin 0.3 % THb (0-2.0); Fractional Inspired Oxygen 35 %; HCO3 ABG 25.3 mEq/l (22.0-26.0); Methemoglobin ABG 0.2 %THb (0-1.5); Oxygen Content ABG 17.8 %vol (16.0-22.0); Oxygen Saturation ABG 97.7 % (95.0-100.0); Oxyhemoglobin 96.8 % THb (90.0-100.0); PCO2 ABG 39.8 mmHg (35.0-45.0); PO2 ABG 100.7 mmHg (80.0-100.0); PO2 FiO2 Ratio Arterial Blood 2.88 %; Reduced Hemoglobin 2.7 %THb (0-5.0); pH ABG 7.421 (7.350-7.450)
[2021-08-19 05:10] LABS: Alanine Aminotransferase 29 U/L (6-35); Alkaline Phosphatase 79 U/L (38-126); Anion Gap 8 mmol/L (8-16); Aspartate Amino Transferase 60 U/L (14-36); Bilirubin,Total 0.3 mg/dL (0.2-1.3); Blood Urea Nitrogen 13 mg/dL (7-17); Calcium 8.7 mg/dL (8.4-10.2); Carbon Dioxide 27 mmol/L (22-30); Chloride 106 mmol/L (98-107); Estimated CRCL calculation 56 ml/min; Estimated Glomerular Filt Rate > 60; Glucose 128 mg/dL (65-110); Magnesium 1.9 mg/dL (1.6-2.3); Phosphorus 2.7 mg/dL (2.5-4.5); Potassium 3.8 mmol/L (3.4-5.0); Prothrombin Time 12.8 Seconds (11.1-14.7); Sodium 141 mmol/L (137-145)
[2021-08-19 05:11] LABS: Arterial Blood Gas Vent Mode CMV; Arterial Blood Gas Ventilator rate 26 /MIN; Device VENTILATOR; Modified Allen's Test Pass; Site Drawn LEFT RADIAL
[2021-08-19 05:11] LABS: Partial Thromboplastin Time 26.8 SECONDS (22.3-36.8)
[2021-08-19 05:12] LABS: Arterial Blood Gas PEEP 5 cmH2O; Arterial Blood Gas Tidal Volume 380 ml
[2021-08-19 05:13] LABS: Lactic Acid Reflex 1.4 mmol/L (0.7-2.0)
[2021-08-19] MEDS: methylPREDNISolone SOD SUCC 40 MG VIAL IV PUSH (05:45)
--- NOTE | 2021-08-19 08:32 | PC.NURSE ---
[facility] flyer was given to patient in admission folder.
[2021-08-19] MEDS: carvediloL 3.125 MG TABLET PO ×2 (08:50→20:30)
[2021-08-19] MEDS: SACUBITRIL/VALSARTAN 12-13 MG TABLET 1 TAB PO ×2 (08:50→20:29)
[2021-08-19] MEDS: MINERAL OIL/WHITE PETROLATUM OINTMENT 1 APPLIC EACH EYE ×2 (08:51→20:30)
[2021-08-19] MEDS: PANTOPRAZOLE SODIUM IV 40 MG VIAL IV PUSH ×2 (08:51→20:29)
[2021-08-19] MEDS: SPIRONOLACTONE 25 MG TABLET PO (08:51)
[2021-08-19] MEDS: PROPOFOL IV EMULSION 100 ML 12.02 MG IV CONT (11:02)
--- NOTE | 2021-08-19 11:22 | WPDINTPN ---
Progress Note: A&P Assessment and Plan (1) Acute respiratory failure: Code(s): J96.00 - Acute respiratory failure, unspecified whether with hypoxia or hypercapnia Status: Acute Assessment and Plan: Acute respiratory failure likely related to acute coronary syndrome, possible undiagnosed obstructive lung disease which is currently exacerbated -patient has significant bilateral expiratory wheezes -currently intubated on CMV mode of ventilation, 35% FiO2 and PEEP of 5 with adequate O2 sats -continue bronchodilators, steroids, antibiotics for possible undiagnosed obstructive lung disease exacerbation -sedated with propofol -maintain RASS of 0 to -2, daily sedation vacation Chest x-ray reviewed, will obtain post intubation ABGs 08/18/2021: CTA chest IMPRESSION: 1. No pulmonary embolus. 2. Subsolid nodule of the right upper lobe which could be infectious or inflammatory. Follow-up CT in three months is recommended. 3. Left lower lobe granuloma. (2) Acute coronary syndrome with high troponin: Code(s): I24.9 - Acute ischemic heart disease, unspecified Status: Acute Assessment and Plan: Acute coronary syndrome with elevated troponins, likely STEMI late presentation -patient does not have any history of coronary artery disease -echocardiogram done today reveals severe cardiomyopathy -Patient underwent cardiac catheterization and did not show any significant coronary artery disease confirming diagnosis of stress-induced cardiomyopathy. -continue ARB beta-veronica and Aldactone -aspirin held due to upper GI bleed (3) Cardiomyopathy: Code(s): I42.9 - Cardiomyopathy, unspecified Status: Acute Assessment and Plan: 08/18/2021 echocardiogram: 1. Left ventricular chamber dimension is normal. 2. Left ventricular systolic function is severely reduced, estimated at 25-30% with akinetic apical and mid segments with relative sparing of the bases. Consider Takotsubo cardiomyopathy. . 3. There is mildly increased left ventricular wall thickness. 4. The left ventricular diastolic function is abnormal. 5. There is no thrombus visualized in the left ventricle. Patient underwent cardiac catheterization and did not show any significant coronary artery disease. Impella but not be placed due to small caliber of patient's femoral arteries I will discuss with cardiology regarding any further workup for cardiomyopathy. (4) Hypertension: Code(s): I10 - Essential (primary) hypertension Status: Acute Assessment and Plan: Currently on propofol, blood pressures are stable, will continue to monitor (5) Leukocytosis: Code(s): D72.829 - Elevated white blood cell count, unspecified Status: Acute Assessment and Plan: Likely reactive Patient is on ceftriaxone for COPD exacerbation Check sputum cultures Check blood cultures the patient febrile (6) Hyperglycemia: Code(s): R73.9 - Hyperglycemia, unspecified Status: Acute Assessment and Plan: Patient does not have any known diabetes hemoglobin A1c 4.9 Continue Accu-Cheks and sliding scale insulin (7) Upper GI bleed: Code(s): K92.2 - Gastrointestinal hemorrhage, unspecified Status: Acute Assessment and Plan: OG suction is bloody this could be traumatic or secondary to anticoagulation the patient received Hold aspirin Start IV PPI q.12 hours Monitor hemoglobin every 6 hours Hold tube feeds for today Additional Plan Discussed with patient's daughter at bedside and updated her with patient's current status including COPD respiratory failure heart failure and upper GI bleed. I answered all questions. Code status: Full code Critical care time spent: 35 minutes This dictation may have been done utilizing a voice recognition system. Attempts have been made to correct errors. However, there may be uncorrected grammatical, spelling, and recognition errors present. Due to a high
[2021-08-19 11:28] LABS: Glucose Point of Care 132 mg/dl (65-105)
[2021-08-19 11:57] LABS: Hematocrit 37.6 % (37.0-47.0); Hemoglobin 12.5 g/dL (12.0-15.0)
--- NOTE | 2021-08-19 13:48 | PCCPR ---
given flyer in ICU, EF 25-30%, STEMI
--- NOTE | 2021-08-19 15:44 | PM.PNCARD ---
Progress Note: A&P Assessment and Plan (1) Cardiomyopathy: Qualifiers: Cardiomyopathy type: stress-induced Qualified Code(s): I51.81 - Takotsubo syndrome Code(s): I42.9 - Cardiomyopathy, unspecified Status: Acute Assessment and Plan: No LV gram and 2D echocardiogram suggestive of takotsubo cardiomyopathy. By history no significant infectious or traumatic precipitating event. Check troponin for downward trend. Even if alternative etiology for nonischemic cardiomyopathy wall motion abnormalities and abrupt onset remain most consistent with takotsubo process. Thus far, patient is tolerating Entresto, carvedilol, and spironolactone. Initial concern given the severity of her presentation that she may develop hemodynamic collapse, however, this has not occurred. She has been relatively hypotensive likely related to sedation and medical therapy. Peripheral arterial vasculature not suitable for standard Impella placement. She does not meet criteria for Impella at this time as she is not currently in shock nor is she exhibiting evidence of significant end-organ damage. continue to monitor closely. Monitor BP on sedation. patient remains critically ill but is slowly improving. Aspirin held secondary to concern for GI bleed per critical care. -May need to reduce or hold spironolactone if evidence of intravascular volume depletion and or relative hypotension. (2) Acute respiratory failure: Qualifiers: Respiratory failure complication: unspecified whether with hypoxia or hypercapnia Qualified Code(s): J96.00 - Acute respiratory failure, unspecified whether with hypoxia or hypercapnia Code(s): J96.00 - Acute respiratory failure, unspecified whether with hypoxia or hypercapnia Status: Acute Assessment and Plan: Status post intubation. Minimal O2 supplementation yet persistent wheezing diffusely. Remains on steroids. Precise etiology remains unclear no improvement with bronchodilator therapy. She is not clinically volume overloaded at this time. Significant leukocytosis improving, chest x-ray and CT without acute infiltrate, pulmonary vascular congestion. Stable nodule. minimal oxygenation but persistent diffuse Follow H&H for concern for blood in demetria gastric tube. Despite her abnormal physical exam she is stabilizing from a respiratory perspective. Further management per Critical Care and Primary Service. Consider pulmonology consultation if appropriate. She remains on ceftriaxone. (3) Elevated troponin: Code(s): R77.8 - Other specified abnormalities of plasma proteins Status: Acute Assessment and Plan: Unusual presentation with highly atypical symptoms without chest pain with echo and coronary angiography suggestive of takotsubo cardiomyopathy with normal coronary anatomy. EKG and elevated troponin suggestive of acute coronary syndrome and/or plaque rupture which we now know is not applicable. Repeat EKG and troponin in a.m.. (4) Hyperglycemia: Code(s): R73.9 - Hyperglycemia, unspecified Status: Acute Assessment and Plan: Workup per hospitalist service. stable. (5) Tobacco abuse: Code(s): Z72.0 - Tobacco use Status: Acute Assessment and Plan: Immediate and absolute smoking cessation counseling performed. Subjective Date/time seen: Date of service:08/19/21 15:44 Follow-up for elevated troponin, respiratory failure, takotsubo cardiomyopathy BP a little soft at times otherwise reasonably stable thought secondary to medical therapy and sedation. Minimal O2 supplementation but remains intubated on mechanical ventilatory support. Renal function stable. H&H stable. Concern for dark blood in oral gastric tube. Review of Systems Review of Systems: All systems reviewed & are unremarkable except as noted in HPI and below ROS unobtainable: Yes unobtainable due to endotracheal tube and unobtainable du
[2021-08-19 16:31] LABS: Glucose Point of Care 121 mg/dl (65-105)
[2021-08-19] MEDS: PROPOFOL IV EMULSION 100 ML 14.03 MG IV CONT (17:49)
[2021-08-19 18:30] LABS: Hematocrit 42.1 % (37.0-47.0); Hemoglobin 13.5 g/dL (12.0-15.0)
[2021-08-19] MEDS: MIDAZOLAM 100MG/NS 100ML(*CRX) 100 MG/100 ML BAG IV CONT (23:27)
[2021-08-19 23:39] LABS: Glucose Point of Care 104 mg/dl (65-105)
[2021-08-20] VITALS (73 sets, daily range): BP systolic 67–152; BP diastolic 47–96; PULSE 81–125; RESP 23–322; TEMP 36.1–37.4; O2SAT 94–100
[2021-08-20 00:43] LABS: Hematocrit 39.3 % (37.0-47.0); Hemoglobin 13.3 g/dL (12.0-15.0)
[2021-08-20] MEDS: ALBUTEROL SULFATE NEB 2.5 MG/0.5 ML INH 5 MG INHALATION ×4 (02:12→19:56)
[2021-08-20] MEDS: IPRATROPIUM BR 0.02% INH SOLN 0.5 MG/2.5 ML VIAL INHALATION ×4 (02:12→19:56)
[2021-08-20] MEDS: PROPOFOL IV EMULSION 100 ML 8.02 MG IV CONT (04:05)
[2021-08-20 05:39] LABS: Alveolar/Arterial O2 Gradient 58.3 mmHg; Base Excess ABG 4.1 mEq/l (+/-2.0); Carboxyhemoglobin 0.3 % THb (0-2.0); Fractional Inspired Oxygen 25 %; HCO3 ABG 28.1 mEq/l (22.0-26.0); Methemoglobin ABG 0.1 %THb (0-1.5); Oxygen Content ABG 18.2 %vol (16.0-22.0); Oxygen Saturation ABG 95.4 % (95.0-100.0); Oxyhemoglobin 93.8 % THb (90.0-100.0); PCO2 ABG 39.8 mmHg (35.0-45.0); PO2 ABG 72.7 mmHg (80.0-100.0); PO2 FiO2 Ratio Arterial Blood 2.91 %; Reduced Hemoglobin 5.8 %THb (0-5.0); Total Hemoglobin 13.8 g/dL (12.0-18.0); pH ABG 7.466 (7.350-7.450)
[2021-08-20 05:40] LABS: Device VENTILATOR; Modified Allen's Test Unable to perform; Site Drawn RIGHT RADIAL
[2021-08-20 05:41] LABS: Arterial Blood Gas PEEP 5 cmH2O; Arterial Blood Gas Tidal Volume 380 ml; Arterial Blood Gas Vent Mode CMV; Arterial Blood Gas Ventilator rate 26 /MIN
[2021-08-20 06:04] LABS: Glucose Point of Care 115 mg/dl (65-105)
[2021-08-20 06:16] LABS: Hematocrit 41.2 % (37.0-47.0); Hemoglobin 13.7 g/dL (12.0-15.0); Mean Corpuscular HGB Conc 33.3 g/dl (32-36); Mean Corpuscular Volume 93.2 fl (80-100); Mean Platelet Volume 9.9 fl (7.4-10.4); Platelet Count Result 178 k/mm3 (150-375); Red Blood Count 4.42 M/mm3 (4.2-5.4); Red Cell Distribution Width 13.7 % (11.5-14.5); White Blood Count 17.5 K/mm3 (4.5-10.0)
[2021-08-20 06:34] LABS: Alanine Aminotransferase 88 U/L (6-35); Albumin Level 4.1 g/dL (3.5-5.1); Alkaline Phosphatase 85 U/L (38-126); Anion Gap 8 mmol/L (8-16); Aspartate Amino Transferase 117 U/L (14-36); Blood Urea Nitrogen 23 mg/dL (7-17); Calcium 8.9 mg/dL (8.4-10.2); Carbon Dioxide 27 mmol/L (22-30); Chloride 106 mmol/L (98-107); Cholesterol 229 mg/dL (0-200); Estimated CRCL calculation 56 ml/min; Estimated Glomerular Filt Rate > 60; Glucose 101 mg/dL (65-110); HDL Direct 53 mg/dL; Magnesium 2.3 mg/dL (1.6-2.3); Potassium 3.7 mmol/L (3.4-5.0); Sodium 141 mmol/L (137-145); Triglycerides 382 mg/dL (<150)
[2021-08-20 06:45] LABS: LDL Cholesterol Direct 108 mg/dL
--- NOTE | 2021-08-20 07:35 | PC.NURSE ---
NOC RN reported in shift report that Midazolam was infusing at rate of 4mg/hr and Propofol at 35mcg/kg/min. Upon assessment of patient and pumps at 0730, Midazolam pump noted to be infusing at rate of 4mg/hr and Propofol at 35mcg/kg/min. Charting at this time of a rate on Midazolam of 3mg/hr and and Propofol at 20mcg/kg/min. Charting updated to correct infusion rate. Will continue to monitor.
--- NOTE | 2021-08-20 07:55 | PM.PNCARD ---
Progress Note: A&P Additional Plan 60-year-old lady with: Nonischemic cardiomyopathy appears to be severe case of takotsubo. She is on the ventilator with adequate oxygenation. Attempt will be considered later today to wean sedation and attempt extubation. She is very wheezy on physical exam. She does not carry the prior diagnosis of COPD but is a heavy smoker and has chest x-ray findings consistent with COPD. Has not had medical attention a long time prior to this admission. Because of problematic hypotension I will put the carvedilol and Entresto on hold at least for now until we get her extubated and off sedation. Prognosis is guarded given her severe LV dysfunction Adelfo Roe MD [facility] Subjective Date/time seen: Date of service: 08/20/21 07:55 Interval history: Follow-up visit in this 60-year-old woman with: Severe nonischemic cardiomyopathy suspect takotsubo stress cardiomyopathy however with much worse LV dysfunction then the typical situation. Patient has no coronary artery disease. Acute coronary syndrome with anterior ischemia was suspected on presentation. Because of her hemodynamic and respiratory extremis on presentation consideration was given to placement of Impella ventricular assist device however peripheral vasculature in the lower extremities was of very small caliber and not suitable for large-bore access. Patient remains intubated on the ventilator in the ICU. Nursing staff report that after last evening's dose of Entresto and carvedilol she was problematically hypotensive off and on through the night. Exam Narrative: General: White female lying supine in bed sedated, intubated on mechanical ventilatory support no apparent distresss Head: atraumatic, normocephalic BiPAP mask in place. Eyes: EOM intact, sclerae anicteric, conjunctivae unremarkable Ears/Nose: external inspection of ears and nose were grossly normal Mouth/Throat: oral tracheal intubation, dark material within OG tubing Neck: supple, normal range of motion, no jugular venous distention or carotid bruits, thyroid nonpalpable, trachea midline. Cardiac: Tachycardic, Regular rate and rhythm, normal S1-S2, no appreciable murmurs, distant heart sounds Lungs: Moderate diffuse expiratory wheezes, prolonged expiratory phase throughout, no rales Abdomen: Soft, nontender, nondistended, positive bowel sounds throughout. No appreciable hepatosplenomegaly, no rebound guarding or rigidity noted. Abdominal aorta nonpalpable, no appreciable bruits. Extremities: No edema, clubbing, and or cyanosis. Extremities warm and well perfused. Skin: Warm and dry without ecchymoses, rashes, and/or petechiae. Musculoskeletal: Muscle strength and tone intact throughout without obvious deformities. Vascular: Carotid upstrokes 2+ bilaterally, radial pulses 2+ bilaterally, dorsalis pedis pulses 2+ bilaterally, right groin arterial access site soft no bruit, bleeding, palpable femoral pulses Neurologic: Limited, sedated. examination grossly nonfocal Pscyhiatric: Unobtainable as patient is sedated, intubated Objective Data Vital Signs Vital Signs: Vital Signs - 24 hr 08/19/21 07:59 08/19/21 08:00 08/19/21 08:14 Temperature 37.1 C Pulse Rate 95 95 95 Respiratory Rate 26 H 26 H Blood Pressure 91/66 L Pulse Oximetry 98 98 08/19/21 08:19 08/19/21 08:21 08/19/21 08:50 Temperature Pulse Rate 94 94 100 Respiratory Rate 26 H Blood Pressure Pulse Oximetry 98 08/19/21 09:48 08/19/21 10:00 08/19/21 10:21 Temperature Pulse Rate 97 93 88 Respiratory Rate 26 H 26 H Blood Pressure 91/61 L Pulse Oximetry 98 99 08/19/21 10:22 08/19/21 11:02 08/19/21 12:00 Temperature 37.1 C Pulse Rate 89 93 Respiratory Rate 26 H 26 H Blood Pressure 91/65 L Pulse Oximetry 99 98 08/19/21 13:59 08/19/21 14:00 08/19/21 14:04 Temperature 37.5 C Pulse Rate 102 H 102 H 102 H Respiratory
--- NOTE | 2021-08-20 08:00 | ECG_ITS ---
Measurements Intervals [place] Rate: 95 P: 80 WA: 126 QRS: 111 QRSD: 93 T: 193 QT: 397 QTc: 500 Interpretive Statements SINUS RHYTHM RIGHT AXIS DEVIATION BORDERLINE R WAVE PROGRESSION, ANTERIOR LEADS T WAVE ABNORMALITY IN ANTEROLAT/HIGH LAT LEADS- CONSIDER ISCHEMIA ABNORMAL ECG Electronically Signed On 08-20-2021 9:30:40 CDT by Ryne Hickey D.O.
[2021-08-20] MEDS: methylPREDNISolone SOD SUCC 125 MG VIAL 80 MG IV PUSH (08:09)
[2021-08-20] MEDS: PANTOPRAZOLE SODIUM IV 40 MG VIAL IV PUSH ×2 (08:09→20:00)
[2021-08-20] MEDS: MINERAL OIL/WHITE PETROLATUM OINTMENT 1 APPLIC EACH EYE ×2 (08:09→19:56)
[2021-08-20] MEDS: POTASSIUM CHLORIDE 20 MEQ PACKET (FOR LIQUID) 40 MEQ FEED TUBE (08:15)
[2021-08-20] MEDS: SODIUM CHLORIDE 0.45% 1,000 ML 100 ML IV CONT (08:15)
--- NOTE | 2021-08-20 08:42 | WPDINTPN ---
Progress Note: A&P Assessment and Plan (1) Acute respiratory failure: Qualifiers: Respiratory failure complication: unspecified whether with hypoxia or hypercapnia Qualified Code(s): J96.00 - Acute respiratory failure, unspecified whether with hypoxia or hypercapnia Code(s): J96.00 - Acute respiratory failure, unspecified whether with hypoxia or hypercapnia Status: Acute Assessment and Plan: Acute respiratory failure likely related to acute coronary syndrome, possible undiagnosed obstructive lung disease which is currently exacerbated -patient continues to have significant bilateral expiratory wheezes -currently intubated on CMV mode of ventilation, 35% FiO2 and PEEP of 5 with adequate O2 sats -continue bronchodilators, steroids, antibiotics for possible undiagnosed obstructive lung disease exacerbation -sedated with propofol and Versed -maintain RASS of 0 to -2, daily sedation vacation - Chest x-ray reviewed 08/18/2021: CTA chest IMPRESSION: 1. No pulmonary embolus. 2. Subsolid nodule of the right upper lobe which could be infectious or inflammatory. Follow-up CT in three months is recommended. 3. Left lower lobe granuloma. -5/5 PSV weaning trial was attempted this morning after sedation holiday but patient quickly became tachypneic and desaturated into 80s. Patient was asynchronous with the ventilator with respiratory rate in 40s. Patient was placed back on sedation and full support on ventilator in CMV mode -start Precedex infusion to rule out any anxiety component during breathing trial next attempt (2) Acute coronary syndrome with high troponin: Code(s): I24.9 - Acute ischemic heart disease, unspecified Status: Acute Assessment and Plan: Acute coronary syndrome with elevated troponins, likely STEMI late presentation -patient does not have any history of coronary artery disease -echocardiogram 1. Left ventricular chamber dimension is normal. 2. Left ventricular systolic function is severely reduced, estimated at 25-30% with akinetic apical and mid segments with relative sparing of the bases. Consider Takotsubo cardiomyopathy. . 3. There is mildly increased left ventricular wall thickness. 4. The left ventricular diastolic function is abnormal. 5. There is no thrombus visualized in the left ventricle . -Patient underwent cardiac catheterization and did not show any significant coronary artery disease confirming diagnosis of stress-induced cardiomyopathy. -continue ARB beta-veronica and Aldactone -aspirin initially held due to upper GI bleed but will be resumed today (3) Cardiomyopathy: Qualifiers: Cardiomyopathy type: stress-induced Qualified Code(s): I51.81 - Takotsubo syndrome Code(s): I42.9 - Cardiomyopathy, unspecified Status: Acute Assessment and Plan: 08/18/2021 echocardiogram: 1. Left ventricular chamber dimension is normal. 2. Left ventricular systolic function is severely reduced, estimated at 25-30% with akinetic apical and mid segments with relative sparing of the bases. Consider Takotsubo cardiomyopathy. . 3. There is mildly increased left ventricular wall thickness. 4. The left ventricular diastolic function is abnormal. 5. There is no thrombus visualized in the left ventricle. Patient underwent cardiac catheterization and did not show any significant coronary artery disease. Impella but not be placed due to small caliber of patient's femoral arteries Cardiology does not recommend any further workup for cardiomyopathy. (4) Hypertension: Code(s): I10 - Essential (primary) hypertension Status: Acute Assessment and Plan: Currently on propofol, blood pressures are stable, will continue to monitor (5) Leukocytosis: Code(s): D72.829 - Elevated white blood cell count, unspecified Status: Acute Assessment and Plan: Likely reactive Patient is on ceftriaxone for COPD exacerbation Check
[2021-08-20] MEDS: dexmedeTOMIDine 400 MCG/100 ML 400 MCG/100 ML BAG IV CONT (09:04)
--- NOTE | 2021-08-20 09:13 | PCRCNOTE ---
pt was placed on 5/5 SBT, pt failed trail with rapidly decreasing Sp02 and increasing HR and RR. Pt placed back on full ventilatory support.
[2021-08-20] MEDS: SODIUM CHLORIDE 0.9% IV 500 ML IV CONT ×2 (09:36→10:18)
--- NOTE | 2021-08-20 09:38 | PC.NURSE ---
Started Precedex at 0.2mcg/kg/min per MD order. Pt's BP became soft 60/41, 57/41, 77/58. Propofol held at this time, Midazolam infusing at 3mg/hr. Dr. Staton notified of patient change in VS. New order to hold Precedex, decrease Propofol to 20mcg/kg/min, leave Midazolam infusing at current rate (3mg/hr) and give 500 ml NS bolus. Call [facility] for PICC line placement today incase pressors are needed.
--- NOTE | 2021-08-20 10:06 | PC.NURSE ---
Pt's BP continues to remain soft. 1000: BP 66/51, recheck of 67/51. Notified Dr. Staton of vital signs. New order to hold all sedation, and give another 500cc NS bolus
--- NOTE | 2021-08-20 10:34 | PCFNICU ---
ICU Rounding Note: Pt current nutrition is Vital 1.2 @ 20ml/hr to advance by 10ml/hr q 4hrs to goal rate of 60ml/hr. Nutrition recommendation: continue with current orders and tube feed advancement, change goal rate to 50ml/hr for tube feed while on current propofol. Last recorded weight is 69.6 kg - stable at this time. Bowel Motility: Hypoactive bowel sounds at this time, no documented BM Labs Reviewed: BUN:23, Tri Meds Noted:solumedrol, versed, propofol: 8ml = 211kcals. Skin: WNL Additional Notes: Tube feeding initiated per RD rec, running Vital 1.2 at 20ml/hr. Tolerating at this time. To advance to goal rate of 60ml/hr to total 1584kcals, 99g PRO, 1070ml fluid. Noted recommendation to lower to 50ml/hr goal rate while on 8ml/hr propofol. Will follow daily in ICU rounds, Follow up in 3 days. .
[2021-08-20] MEDS: LIDOCAINE HCL 1% PF INJ 5 ML VIAL INFILTRATE (11:05)
--- NOTE | 2021-08-20 11:11 | PC.NURSE ---
Pt is restless and BP has improved. BP 152/96. Notified Dr. Staton of change in patient vital signs. New order to restart Propofol at 25mcg/kg/min and continue to monitor. Will add more sedation as patient requires
[2021-08-20 12:38] LABS: Glucose Point of Care 158 mg/dl (65-105)
[2021-08-20] MEDS: CENTRAL LINE FLUSH 10 ML IV PUSH ×2 (13:25→21:06)
--- NOTE | 2021-08-20 15:42 | PC.NURSE ---
1230: Pt's BP started to decrease again. BP: 1215: 95/69 1230: 77/54 1245: 87/65 Dr. Staton notified of situation and new order to decrease Propofol to rate of 15mcg/kg/min. Pt's BP remained soft for next several cycles of vital signs. 1300: 85/58 1315: 76/58 1330: 89/64 1320: BP's remain low. Propofol decreased to 5 mcg/kg/min. Dr. Staton notified of situation and patient's condition. Dr. Staton in agreement with current treatment. Will continue to monitor and notify MD of any changes.
[2021-08-20] MEDS: PROPOFOL IV EMULSION 100 ML 12.02 MG IV CONT (17:18)
[2021-08-20 17:29] LABS: Glucose Point of Care 168 mg/dl (65-105)
[2021-08-20] MEDS: dexmedeTOMIDine 400 MCG/100 ML 400 MCG/100 ML BAG 8.7 MCG IV CONT (21:01)
[2021-08-21] VITALS (62 sets, daily range): BP systolic 62–166; BP diastolic 47–112; PULSE 68–128; RESP 24–35; TEMP 36.7–37.6; O2SAT 94–100
[2021-08-21 00:02] LABS: Glucose Point of Care 139 mg/dl (65-105)
[2021-08-21] MEDS: PROPOFOL IV EMULSION 100 ML 12.02 MG IV CONT (01:56)
[2021-08-21] MEDS: ALBUTEROL SULFATE NEB 2.5 MG/0.5 ML INH 5 MG INHALATION ×4 (03:02→19:56)
[2021-08-21] MEDS: IPRATROPIUM BR 0.02% INH SOLN 0.5 MG/2.5 ML VIAL INHALATION ×4 (03:02→19:56)
[2021-08-21] MEDS: SODIUM CHLORIDE 0.9% IV 1,000 ML 999 ML IV CONT (03:45)
[2021-08-21 04:52] LABS: Hematocrit 35.6 % (37.0-47.0); Hemoglobin 11.5 g/dL (12.0-15.0); Mean Corpuscular HGB Conc 32.3 g/dl (32-36); Mean Corpuscular Hemoglobin 30.7 pg (26-34); Mean Corpuscular Volume 94.9 fl (80-100); Mean Platelet Volume 9.8 fl (7.4-10.4); Platelet Count Result 180 k/mm3 (150-375); Red Blood Count 3.75 M/mm3 (4.2-5.4); Red Cell Distribution Width 13.6 % (11.5-14.5); White Blood Count 13.1 K/mm3 (4.5-10.0)
[2021-08-21 05:08] LABS: Alanine Aminotransferase 104 U/L (6-35); Albumin Level 3.5 g/dL (3.5-5.1); Alkaline Phosphatase 78 U/L (38-126); Anion Gap 6 mmol/L (8-16); Aspartate Amino Transferase 105 U/L (14-36); Bilirubin,Total 0.5 mg/dL (0.2-1.3); Blood Urea Nitrogen 22 mg/dL (7-17); Carbon Dioxide 24 mmol/L (22-30); Chloride 110 mmol/L (98-107); Estimated CRCL calculation 56 ml/min; Estimated Glomerular Filt Rate > 60; Glucose 116 mg/dL (65-110); Magnesium 2.3 mg/dL (1.6-2.3); Potassium 3.4 mmol/L (3.4-5.0); Sodium 140 mmol/L (137-145); Triglycerides 216 mg/dL (<150)
[2021-08-21] MEDS: CENTRAL LINE FLUSH 10 ML IV PUSH ×3 (05:08→20:22)
[2021-08-21] MEDS: fentaNYL CITRATE INJ (*CRX) 100 MCG/2 ML VIAL 50 MCG IV PUSH ×2 (05:15→23:58)
[2021-08-21 05:44] LABS: Alveolar/Arterial O2 Gradient 84.6 mmHg; Base Excess ABG -0.9 mEq/l (+/-2.0); Carboxyhemoglobin 0.3 % THb (0-2.0); Fractional Inspired Oxygen 30 %; HCO3 ABG 24.2 mEq/l (22.0-26.0); Methemoglobin ABG 0.2 %THb (0-1.5); Oxygen Content ABG 17.6 %vol (16.0-22.0); Oxygen Saturation ABG 95.7 % (95.0-100.0); PCO2 ABG 41.7 mmHg (35.0-45.0); PO2 ABG 80.3 mmHg (80.0-100.0); PO2 FiO2 Ratio Arterial Blood 2.68 %; Reduced Hemoglobin 5.5 %THb (0-5.0); Total Hemoglobin 13.3 g/dL (12.0-18.0); pH ABG 7.382 (7.350-7.450)
[2021-08-21 05:46] LABS: Arterial Blood Gas PEEP 5 cmH2O; Arterial Blood Gas Vent Mode CMV; Arterial Blood Gas Ventilator rate 26 /MIN; Device VENTILATOR; Modified Allen's Test Pass; Site Drawn LEFT RADIAL
[2021-08-21 05:47] LABS: Arterial Blood Gas Tidal Volume 380 ml
[2021-08-21] MEDS: PROPOFOL IV EMULSION 100 ML 14.03 MG IV CONT (07:19)
[2021-08-21] MEDS: MIDAZOLAM HCL (*CRX) 2 MG/2 ML VIAL IV PUSH (07:20)
[2021-08-21] MEDS: dexmedeTOMIDine 400 MCG/100 ML 400 MCG/100 ML BAG 6.96 MCG IV CONT (07:56)
[2021-08-21] MEDS: POTASSIUM CHLORIDE 20 MEQ PACKET (FOR LIQUID) 40 MEQ FEED TUBE (08:47)
[2021-08-21] MEDS: methylPREDNISolone SOD SUCC 125 MG VIAL 80 MG IV PUSH (08:48)
[2021-08-21] MEDS: PANTOPRAZOLE SODIUM IV 40 MG VIAL IV PUSH ×2 (08:48→20:22)
[2021-08-21] MEDS: MINERAL OIL/WHITE PETROLATUM OINTMENT 1 APPLIC EACH EYE ×2 (08:48→20:22)
--- NOTE | 2021-08-21 10:28 | WPDINTPN ---
Progress Note: A&P Assessment and Plan (1) Acute respiratory failure: Qualifiers: Respiratory failure complication: unspecified whether with hypoxia or hypercapnia Qualified Code(s): J96.00 - Acute respiratory failure, unspecified whether with hypoxia or hypercapnia Code(s): J96.00 - Acute respiratory failure, unspecified whether with hypoxia or hypercapnia Status: Acute Assessment and Plan: Acute respiratory failure likely related to acute coronary syndrome, possible undiagnosed obstructive lung disease which is currently exacerbated -patient continues to have significant bilateral expiratory wheezes -currently intubated on CMV mode of ventilation, 35% FiO2 and PEEP of 5 with adequate O2 sats -chest x-ray reviewed and advance ET tube by 2 cm -continue bronchodilators, steroids, antibiotics for possible undiagnosed obstructive lung disease exacerbation -sedated with propofol -start Precedex infusion and will attempt a weaning trial on Precedex and off propofol -ABG reviewed 08/18/2021: CTA chest IMPRESSION: 1. No pulmonary embolus. 2. Subsolid nodule of the right upper lobe which could be infectious or inflammatory. Follow-up CT in three months is recommended. 3. Left lower lobe granuloma. -08/21 she failed her weaning trial as she quickly became tachypneic and desaturated into 80s. Patient was asynchronous with the ventilator with respiratory rate in 40s. Patient was placed back on sedation and full support on ventilator in CMV mode (2) Acute coronary syndrome with high troponin: Code(s): I24.9 - Acute ischemic heart disease, unspecified Status: Acute Assessment and Plan: Acute coronary syndrome with elevated troponins, likely STEMI late presentation -patient does not have any history of coronary artery disease -echocardiogram 1. Left ventricular chamber dimension is normal. 2. Left ventricular systolic function is severely reduced, estimated at 25-30% with akinetic apical and mid segments with relative sparing of the bases. Consider Takotsubo cardiomyopathy. . 3. There is mildly increased left ventricular wall thickness. 4. The left ventricular diastolic function is abnormal. 5. There is no thrombus visualized in the left ventricle . -Patient underwent cardiac catheterization and did not show any significant coronary artery disease confirming diagnosis of stress-induced cardiomyopathy. -continue ARB beta-veronica and Aldactone -aspirin initially held due to upper GI bleed but has been resumed now (3) Cardiomyopathy: Qualifiers: Cardiomyopathy type: stress-induced Qualified Code(s): I51.81 - Takotsubo syndrome Code(s): I42.9 - Cardiomyopathy, unspecified Status: Acute Assessment and Plan: 08/18/2021 echocardiogram: 1. Left ventricular chamber dimension is normal. 2. Left ventricular systolic function is severely reduced, estimated at 25-30% with akinetic apical and mid segments with relative sparing of the bases. Consider Takotsubo cardiomyopathy. . 3. There is mildly increased left ventricular wall thickness. 4. The left ventricular diastolic function is abnormal. 5. There is no thrombus visualized in the left ventricle. Patient underwent cardiac catheterization and did not show any significant coronary artery disease. Impella but not be placed due to small caliber of patient's femoral arteries Cardiology does not recommend any further workup for cardiomyopathy. (4) Hypertension: Code(s): I10 - Essential (primary) hypertension Status: Acute Assessment and Plan: Currently on propofol, blood pressures are stable, will continue to monitor (5) Leukocytosis: Code(s): D72.829 - Elevated white blood cell count, unspecified Status: Acute Assessment and Plan: Likely reactive Patient is on ceftriaxone for COPD exacerbation Check sputum cultures are pending Urine cultures growing E coli which is sensit
--- NOTE | 2021-08-21 11:33 | PCFNICU ---
ICU Rounding Note: Pt current nutrition is Vital AF 1.2 at 60 ml/hr over 22 hours. Last recorded weight is 70.8 kg, up from 70.7 kg on admit. Bowel Motility:smear reported 08/20, plans for miralax and Dulcolax suppository Labs Reviewed: Hct 35.6, Hgb 11.5,BUN 22, Glu 116 Meds Noted: Propofol 20 hay=891 kcals, Precedex, Protonix, Novolog, Albuterol, Coreg, Rocephin, Sublimaze, Solu Medrol. Skin: WNL Additional Notes: Patient remains on mechanical vent and tube feedings of Vital AF 1.2 at 60 ml/hr. Propofol Infusion plans to be decreased currently at 20 mcgs. Total nutrition: 1795 kcals/99 gms protein. If propofol infusion continues recommend decreasing tube feeding to rate of 50 ml/hr. 30 ml free water flush. PICC line in place. Monitoring: Following daily in ICU rounds and reassessing every Wednesday and Wednesday.
--- NOTE | 2021-08-21 11:55 | PM.PNCARD ---
Progress Note: A&P Additional Plan - acute respiratory failure - non ischemic cardiomyopathy new diagnosis suspect stress-induced cardiomyopathy. - urinary tract infection at this time patient remains on a ventilator. Blood pressure fluctuates. Yesterday Entresto, Aldactone and Coreg were held. Continue to hold for the time being. - troponin peaked 4.5. - Currently being treated for acute COPD exacerbation as well. COPD is a new diagnosis. She has chronic tobacco use. Her chest x-ray reviewed and analyzed myself today shows hyperinflation but no pulmonary vascular congestion. - Once her blood pressure stabilizes then we will introduce low-dose cardiac meds. - continue ceftriaxone to treat urinary tract infection. - Lovenox for DVT prophylaxis?? Subjective Date/time seen: date of fitncmg84/12/22 11:55 Interval history: 60-year-old woman who presented with acute coronary syndrome and was found to be having Severe nonischemic cardiomyopathy suspect takotsubo stress cardiomyopathy, for COPD exacerbation and acute respiratory failure 08/21- remains intubated and ventilated. Blood pressure fluctuates. When she is sedated her blood pressure drops down significantly and then when the sedation is weaned off the blood pressure goes high. no arrhythmias on telemetry Review of Systems Review of Systems: All systems reviewed & are unremarkable except as noted in HPI and below ROS unobtainable: Yes unobtainable due to endotracheal tube and unobtainable due to medical condition Constitutional: Constitutional: Reports as per HPI, Reports no additional constitutional complaints, Reports chills, Reports fatigue and Reports lethargy Eyes: Eyes: Reports as per HPI and Reports no additional eye complaints ENT: Reports system reviewed and no additional complaints, except as documented, Reports as per HPI and Reports nasal congestion Cardiovascular: Cardiovascular: Denies chest pain at rest, Denies chest pain with activity and Reports dyspnea Respiratory: Respiratory: Reports as per HPI, Reports no additional respiratory complaints, Denies cough, Reports dyspnea and Reports wheezing Gastrointestinal: Gastrointestinal: Reports as per HPI, Reports no additional gastrointestinal complaints, Denies abdominal pain, Denies melena, Denies hematochezia and Reports nausea Genitourinary: Genitourinary: Reports as per HPI Musculoskeletal: Musculoskeletal: Reports no additional musculoskeletal complaints and Reports as per HPI Integumentary/Breasts: Skin/Breast: Reports system reviewed and no additional complaints, except as docu and Reports as per HPI Neurologic: Reports system reviewed and no additional complaints, except as documented and Reports as per HPI Psychiatric: Psychiatric: Reports no additional psychiatric complaints, Reports as per HPI and Reports anxiety Endocrine: Endocrine: Reports no additional endocrine complaints, Reports as per HPI and Reports fatigue Hematologic/Lymphatic: Hematologic/Lymphatic: Reports no additional hematologic/lymphatic complaints and Reports as per HPI Allergic/Immunologic: Allergic/Immunologic: Reports wheezing Exam Narrative: General: White female lying supine in bed sedated, intubated on mechanical ventilatory support no apparent distresss Head: atraumatic, normocephalic BiPAP mask in place. Eyes: EOM intact, sclerae anicteric, conjunctivae unremarkable Ears/Nose: external inspection of ears and nose were grossly normal Mouth/Throat: oral tracheal intubation, dark material within OG tubing Neck: supple, normal range of motion, no jugular venous distention or carotid bruits, thyroid nonpalpable, trachea midline. Cardiac: Tachycardic, Regular rate and rhythm, normal S1-S2, no appreciable murmurs, distant heart sounds Lungs: Moderate diffuse expiratory wheezes, prolonged expiratory phase throughout, no rales Abdomen: Soft, nontender, nondistended, positive bowel sounds throughou
[2021-08-21 12:01] LABS: Glucose Point of Care 154 mg/dl (65-105)
[2021-08-21] MEDS: dexmedeTOMIDine 400 MCG/100 ML 400 MCG/100 ML BAG 13.92 MCG IV CONT ×2 (13:06→20:20)
--- NOTE | 2021-08-21 15:17 | PM.IMPN ---
Progress Note: A&P Assessment and Plan (1) Acute respiratory failure: Qualifiers: Respiratory failure complication: unspecified whether with hypoxia or hypercapnia Qualified Code(s): J96.00 - Acute respiratory failure, unspecified whether with hypoxia or hypercapnia Code(s): J96.00 - Acute respiratory failure, unspecified whether with hypoxia or hypercapnia Status: Acute Assessment and Plan: Acute respiratory failure likely related to acute coronary syndrome, possible undiagnosed obstructive lung disease which is currently exacerbated -08/21 she failed her weaning trial as she quickly became tachypneic and desaturated into 80s. Patient was asynchronous with the ventilator with respiratory rate in 40s. Patient was placed back on sedation and full support on ventilator in CMV mode (2) Cardiomyopathy: Qualifiers: Cardiomyopathy type: stress-induced Qualified Code(s): I51.81 - Takotsubo syndrome Code(s): I42.9 - Cardiomyopathy, unspecified Status: Acute Assessment and Plan: Cardiology does not recommend any further workup for cardiomyopathy. Stress-induced cardiomyopathy likely Takotsubo's syndrome, EF 25-30%, clean coronaries on heart catheterization, medical management only (3) Hypertension: Code(s): I10 - Essential (primary) hypertension Status: Acute Assessment and Plan: Extremely labile, monitor closely (4) UTI (urinary tract infection): Code(s): N39.0 - Urinary tract infection, site not specified Status: Acute Assessment and Plan: On day 4 of Rocephin, culture shows pansensitive E coli Subjective Date/time seen: 08/21/21 11:17 Interval history: 60-year-old woman who presented with acute coronary syndrome and was found to be having Severe nonischemic cardiomyopathy suspect takotsubo stress cardiomyopathy, for COPD exacerbation and acute respiratory failure 08/21-patient remains intubated and sedated, mother is at bedside, blood pressure extremely labile based on sedation dosing, no other events noted otherwise, failed weaning trial today due to tachypnea, asynchrony with the vent noted Review of Systems Constitutional: Constitutional: Reports as per HPI Exam Const: Other: Intubated and sedated HENMT: Mouth: Yes moist mucous membranes Eyes: General: appearance normal, both eyes and all related structures Neck: Neck: no JVD Resp: Auscultation: diminished lung sounds Cardio: Rate: tachycardic GI: Inspection: non-distended GI Palp: Yes Soft to palpation Skin: General skin exam: no rashes or lesions noted Neuro: Other: Sedated, unable to assess Objective Data Vital Signs Vital Signs: Vital Signs - 24 hr 08/20/21 16:00 08/20/21 16:29 08/20/21 16:45 Temperature 98.6 F Pulse Rate 101 H 118 H 125 H Respiratory Rate 26 H 32 H 36 H Blood Pressure 107/64 Pulse Oximetry 96 08/20/21 16:57 08/20/21 17:03 08/20/21 17:18 Temperature Pulse Rate 125 H 124 H 117 H Respiratory Rate 36 H 31 H Blood Pressure Pulse Oximetry 94 08/20/21 18:00 08/20/21 18:30 08/20/21 18:45 Temperature Pulse Rate 104 H 94 Respiratory Rate 23 H 26 H Blood Pressure 110/79 91/66 L Pulse Oximetry 96 08/20/21 19:01 08/20/21 19:30 08/20/21 20:00 Temperature 99.4 F Pulse Rate 120 H Respiratory Rate 27 H Blood Pressure 71/56 L 104/73 130/87 Pulse Oximetry 100 08/20/21 20:02 08/20/21 20:03 08/20/21 20:05 Temperature Pulse Rate 95 95 118 H Respiratory Rate 26 H 27 H Blood Pressure Pulse Oximetry 99 08/20/21 20:12 08/20/21 20:32 08/20/21 20:38 Temperature Pulse Rate 97 113 H 115 H Respiratory Rate 26 H 34 H 30 H Blood Pressure Pulse Oximetry 08/20/21 20:56 08/20/21 21:01 08/20/21 21:02 Temperature Pulse Rate 119 H 115 H 115 H Respiratory Rate 30 H 28 H 29 H Blood Pressure Pulse Oximetry 08/20/21 21:28 08/20/21 21:33 08/20/21 21:34 Tem
[2021-08-21 18:13] LABS: Glucose Point of Care 174 mg/dl (65-105)
[2021-08-21] MEDS: PROPOFOL IV EMULSION 100 ML 6.01 MG IV CONT (22:19)
[2021-08-22] VITALS (36 sets, daily range): BP systolic 81–126; BP diastolic 53–83; PULSE 72–128; RESP 16–37; TEMP 36.5–37.4; O2SAT 98–100
[2021-08-22 00:22] LABS: Glucose Point of Care 176 mg/dl (65-105)
[2021-08-22] MEDS: ALBUTEROL SULFATE NEB 2.5 MG/0.5 ML INH 5 MG INHALATION ×4 (01:53→19:47)
[2021-08-22] MEDS: IPRATROPIUM BR 0.02% INH SOLN 0.5 MG/2.5 ML VIAL INHALATION ×4 (01:53→19:47)
[2021-08-22] MEDS: dexmedeTOMIDine 400 MCG/100 ML 400 MCG/100 ML BAG 10.44 MCG IV CONT ×3 (04:40→21:08)
[2021-08-22 04:50] LABS: Alveolar/Arterial O2 Gradient 90.1 mmHg; Base Excess ABG 1.7 mEq/l (+/-2.0); Carboxyhemoglobin 0.2 % THb (0-2.0); Fractional Inspired Oxygen 40 %; HCO3 ABG 26.2 mEq/l (22.0-26.0); Methemoglobin ABG 0.1 %THb (0-1.5); Oxygen Content ABG 15.3 %vol (16.0-22.0); Oxyhemoglobin 97.7 % THb (90.0-100.0); PCO2 ABG 40.4 mmHg (35.0-45.0); PO2 ABG 148.6 mmHg (80.0-100.0); PO2 FiO2 Ratio Arterial Blood 3.72 %; Total Hemoglobin 10.9 g/dL (12.0-18.0); pH ABG 7.429 (7.350-7.450)
[2021-08-22 04:52] LABS: Device VENTILATOR; Modified Allen's Test Pass; Site Drawn LEFT RADIAL
[2021-08-22 04:53] LABS: Arterial Blood Gas PEEP 5 cmH2O; Arterial Blood Gas Tidal Volume 380 ml; Arterial Blood Gas Vent Mode CMV; Arterial Blood Gas Ventilator rate 26 /MIN
[2021-08-22] MEDS: CENTRAL LINE FLUSH 10 ML IV PUSH ×3 (05:36→21:09)
[2021-08-22 05:41] LABS: Hematocrit 32.2 % (37.0-47.0); Hemoglobin 10.1 g/dL (12.0-15.0); Mean Corpuscular HGB Conc 31.4 g/dl (32-36); Mean Corpuscular Hemoglobin 30.4 pg (26-34); Mean Platelet Volume 9.8 fl (7.4-10.4); Platelet Count Result 143 k/mm3 (150-375); Red Blood Count 3.32 M/mm3 (4.2-5.4); Red Cell Distribution Width 13.5 % (11.5-14.5); White Blood Count 8.7 K/mm3 (4.5-10.0)
[2021-08-22 05:50] LABS: Triglycerides 131 mg/dL (<150)
[2021-08-22 06:03] LABS: Alanine Aminotransferase 111 U/L (6-35); Albumin Level 3.3 g/dL (3.5-5.1); Alkaline Phosphatase 68 U/L (38-126); Anion Gap 6 mmol/L (8-16); Aspartate Amino Transferase 74 U/L (14-36); Bilirubin,Total 0.3 mg/dL (0.2-1.3); Blood Urea Nitrogen 24 mg/dL (7-17); Calcium 8.2 mg/dL (8.4-10.2); Carbon Dioxide 27 mmol/L (22-30); Chloride 108 mmol/L (98-107); Estimated CRCL calculation 73 ml/min; Estimated Glomerular Filt Rate > 60; Glucose 137 mg/dL (65-110); Magnesium 2.1 mg/dL (1.6-2.3); Potassium 3.8 mmol/L (3.4-5.0); Sodium 141 mmol/L (137-145)
[2021-08-22] MEDS: methylPREDNISolone SOD SUCC 125 MG VIAL 80 MG IV PUSH (08:24)
[2021-08-22] MEDS: PANTOPRAZOLE SODIUM IV 40 MG VIAL IV PUSH ×2 (08:24→21:09)
[2021-08-22] MEDS: MINERAL OIL/WHITE PETROLATUM OINTMENT 1 APPLIC EACH EYE ×2 (08:24→21:09)
[2021-08-22] MEDS: polyethylene glycoL 3350 17 GM POWD.PACK PO (08:24)
[2021-08-22] MEDS: ENOXAPARIN 40 MG/0.4 ML SYRINGE SUB-Q (08:24)
--- NOTE | 2021-08-22 08:55 | WPDINTPN ---
Progress Note: A&P Assessment and Plan (1) Acute respiratory failure: Qualifiers: Respiratory failure complication: unspecified whether with hypoxia or hypercapnia Qualified Code(s): J96.00 - Acute respiratory failure, unspecified whether with hypoxia or hypercapnia Code(s): J96.00 - Acute respiratory failure, unspecified whether with hypoxia or hypercapnia Status: Acute Assessment and Plan: Acute respiratory failure likely related to acute coronary syndrome, possible undiagnosed obstructive lung disease which is currently exacerbated -patient continues to have significant bilateral expiratory wheezes -currently intubated on CMV mode of ventilation, 35% FiO2 and PEEP of 5 with adequate O2 sats -chest x-ray reviewed -continue bronchodilators, steroids, antibiotics for possible undiagnosed obstructive lung disease exacerbation -sedated with propofol and Precedex -patient has failed her weaning trial due to tachypnea desaturation over last 2 days -will trial again today -ABG reviewed 08/18/2021: CTA chest IMPRESSION: 1. No pulmonary embolus. 2. Subsolid nodule of the right upper lobe which could be infectious or inflammatory. Follow-up CT in three months is recommended. 3. Left lower lobe granuloma. (2) Acute coronary syndrome with high troponin: Code(s): I24.9 - Acute ischemic heart disease, unspecified Status: Acute Assessment and Plan: Acute coronary syndrome with elevated troponins, likely STEMI late presentation -patient does not have any history of coronary artery disease -echocardiogram 1. Left ventricular chamber dimension is normal. 2. Left ventricular systolic function is severely reduced, estimated at 25-30% with akinetic apical and mid segments with relative sparing of the bases. Consider Takotsubo cardiomyopathy. . 3. There is mildly increased left ventricular wall thickness. 4. The left ventricular diastolic function is abnormal. 5. There is no thrombus visualized in the left ventricle . -Patient underwent cardiac catheterization and did not show any significant coronary artery disease confirming diagnosis of stress-induced cardiomyopathy. -continue ARB beta-veronica and Aldactone -aspirin initially held due to upper GI bleed but has been resumed now (3) Cardiomyopathy: Qualifiers: Cardiomyopathy type: stress-induced Qualified Code(s): I51.81 - Takotsubo syndrome Code(s): I42.9 - Cardiomyopathy, unspecified Status: Acute Assessment and Plan: 08/18/2021 echocardiogram: 1. Left ventricular chamber dimension is normal. 2. Left ventricular systolic function is severely reduced, estimated at 25-30% with akinetic apical and mid segments with relative sparing of the bases. Consider Takotsubo cardiomyopathy. . 3. There is mildly increased left ventricular wall thickness. 4. The left ventricular diastolic function is abnormal. 5. There is no thrombus visualized in the left ventricle. Patient underwent cardiac catheterization and did not show any significant coronary artery disease. Impella but not be placed due to small caliber of patient's femoral arteries Cardiology does not recommend any further workup for cardiomyopathy. (4) Hypertension: Code(s): I10 - Essential (primary) hypertension Status: Acute Assessment and Plan: Currently on propofol, blood pressures are stable, will continue to monitor (5) Leukocytosis: Code(s): D72.829 - Elevated white blood cell count, unspecified Status: Acute Assessment and Plan: Likely reactive Patient is on ceftriaxone for COPD exacerbation Check sputum cultures which is pending Urine cultures growing E coli which is sensitive to Rocephin Check blood cultures if patient become febrile WBC count has normalized now (6) Hyperglycemia: Code(s): R73.9 - Hyperglycemia, unspecified Status: Acute Assessment and Plan: Patient does not have
--- NOTE | 2021-08-22 09:49 | PC.NURSE ---
Sedation paused at 0940 for ventilator weaning/ breathing trial.
[2021-08-22 10:18] LABS: Alveolar/Arterial O2 Gradient 70.1 mmHg; Base Excess ABG 3.4 mEq/l (+/-2.0); Fractional Inspired Oxygen 35 %; HCO3 ABG 27.7 mEq/l (22.0-26.0); Oxygen Content ABG 15.8 %vol (16.0-22.0); Oxygen Saturation ABG 98.7 % (95.0-100.0); Oxyhemoglobin 97.2 % THb (90.0-100.0); PCO2 ABG 40.9 mmHg (35.0-45.0); PO2 ABG 131.9 mmHg (80.0-100.0); PO2 FiO2 Ratio Arterial Blood 3.77 %; Total Hemoglobin 11.4 g/dL (12.0-18.0); pH ABG 7.448 (7.350-7.450)
[2021-08-22 10:20] LABS: Site Drawn LEFT RADIAL
[2021-08-22 10:21] LABS: Device VENTILATOR; Modified Allen's Test Pass
[2021-08-22 10:22] LABS: Arterial Blood Gas PEEP 5 cmH2O; Arterial Blood Gas Pressure Support 5 cmH2O; Arterial Blood Gas Vent Mode SPONTANEOUS; Peak Inspiratory Pressure 5 cmH2O
[2021-08-22] MEDS: fentaNYL CITRATE INJ (*CRX) 100 MCG/2 ML VIAL 50 MCG IV PUSH (10:37)
--- NOTE | 2021-08-22 12:12 | PM.PNCARD ---
Progress Note: A&P Assessment and Plan (1) Cardiomyopathy: Qualifiers: Cardiomyopathy type: stress-induced Qualified Code(s): I51.81 - Takotsubo syndrome Code(s): I42.9 - Cardiomyopathy, unspecified Status: Acute Assessment and Plan: No LV gram and 2D echocardiogram suggestive of takotsubo cardiomyopathy. By history no significant infectious or traumatic precipitating event. Check troponin for downward trend. Even if alternative etiology for nonischemic cardiomyopathy wall motion abnormalities and abrupt onset remain most consistent with takotsubo process. patient remains critically ill but is slowly improving. Aspirin held secondary to concern for GI bleed per critical care. Currently holding coreg, entresto, spironolactone due to hypotension. (2) Acute respiratory failure: Qualifiers: Respiratory failure complication: unspecified whether with hypoxia or hypercapnia Qualified Code(s): J96.00 - Acute respiratory failure, unspecified whether with hypoxia or hypercapnia Code(s): J96.00 - Acute respiratory failure, unspecified whether with hypoxia or hypercapnia Status: Acute Assessment and Plan: Status post intubation. Minimal O2 supplementation yet persistent wheezing diffusely. Remains on steroids. Precise etiology remains unclear no improvement with bronchodilator therapy. She is not clinically volume overloaded at this time. Further management per Critical Care and Primary Service. (3) Elevated troponin: Code(s): R77.8 - Other specified abnormalities of plasma proteins Status: Acute Assessment and Plan: Unusual presentation with highly atypical symptoms without chest pain with echo and coronary angiography suggestive of takotsubo cardiomyopathy with normal coronary anatomy. (4) Hyperglycemia: Code(s): R73.9 - Hyperglycemia, unspecified Status: Acute Assessment and Plan: Workup per hospitalist service. stable. (5) Tobacco abuse: Code(s): Z72.0 - Tobacco use Status: Acute Assessment and Plan: Immediate and absolute smoking cessation counseling performed. Subjective Date/time seen: 08/22/21 12:12 Interval history: 60-year-old woman who presented with acute coronary syndrome and was found to be having Severe nonischemic cardiomyopathy suspect takotsubo stress cardiomyopathy, for COPD exacerbation and acute respiratory failure 08/21- remains intubated and ventilated. Blood pressure fluctuates. When she is sedated her blood pressure drops down significantly and then when the sedation is weaned off the blood pressure goes high. no arrhythmias on telemetry Date of service 08/22/2021: Remains intubated, she achieved ~60 minutes on her breathing trial today. BP better today but still relatively hypotensive. Review of Systems Review of Systems: All systems reviewed & are unremarkable except as noted in HPI and below ROS unobtainable: Yes unobtainable due to endotracheal tube and unobtainable due to medical condition Constitutional: Constitutional: Reports as per HPI, Reports no additional constitutional complaints, Reports chills, Reports fatigue and Reports lethargy Eyes: Eyes: Reports as per HPI and Reports no additional eye complaints ENT: Reports system reviewed and no additional complaints, except as documented, Reports as per HPI and Reports nasal congestion Cardiovascular: Cardiovascular: Denies chest pain at rest, Denies chest pain with activity and Reports dyspnea Respiratory: Respiratory: Reports as per HPI, Reports no additional respiratory complaints, Denies cough, Reports dyspnea and Reports wheezing Gastrointestinal: Gastrointestinal: Reports as per HPI, Reports no additional gastrointestinal complaints, Denies abdominal pain, Denies melena, Denies hematochezia and Reports nausea Genitourinary: Genitourinary: Reports as per HPI Musculoskeletal: Musculoskeletal: Reports no add
[2021-08-22] MEDS: PROPOFOL IV EMULSION 100 ML 6.01 MG IV CONT (12:34)
--- NOTE | 2021-08-22 12:51 | PCNFU ---
Nutrition Follow-Up Complete: Inadequate energy intake related to mechanical ventilation as evidenced by NPO status. goal: Meet nutritional needs Patient is progressing towards goal. We will continue current goal. Pt current nutrition is Vital AF 1.2 at 60 ml/hr over 22 hours. Last recorded weight is 69.9 kg, down from 70.7 kg on admit. Bowel Motility: +BM reported 08/21 Labs Reviewed:BUN 24, Cr 0.6,Alb 3.3,Hgb 10.1,Hct 32.2 Meds Noted:Precedex, Protonix, NovoLog, Albuterol, Coreg, Rocephin, Sublimaze, Solu Medrol. Skin: WNL Additional Notes: Patient remains on mechanical vent. Propofol is currently paused for breathing trial today. Tube feedings of Vital AF 1.2 on hold. Agree with current goal rate of tube feeding. Free water flush 30 ml q 4 hours. Agree with diet orders. Will follow daily in ICU rounds, Reassessing every Wednesday and Wednesday.
[2021-08-22 12:54] LABS: Glucose Point of Care 153 mg/dl (65-105)
[2021-08-22 18:41] LABS: Glucose Point of Care 154 mg/dl (65-105)
[2021-08-23] VITALS (37 sets, daily range): BP systolic 79–138; BP diastolic 50–84; PULSE 67–98; RESP 13–37; TEMP 36.6–37.2; O2SAT 93–100
[2021-08-23 00:31] LABS: Glucose Point of Care 122 mg/dl (65-105)
[2021-08-23] MEDS: ALBUTEROL SULFATE NEB 2.5 MG/0.5 ML INH 5 MG INHALATION ×4 (02:09→19:56)
[2021-08-23] MEDS: IPRATROPIUM BR 0.02% INH SOLN 0.5 MG/2.5 ML VIAL INHALATION ×4 (02:09→19:56)
[2021-08-23] MEDS: PROPOFOL IV EMULSION 100 ML 6.01 MG IV CONT (04:14)
[2021-08-23 04:45] LABS: Alveolar/Arterial O2 Gradient 65.2 mmHg; Arterial Blood Gas Vent Mode CMV; Arterial Blood Gas Ventilator rate 26 /MIN; Carboxyhemoglobin 0.2 % THb (0-2.0); Device VENTILATOR; Fractional Inspired Oxygen 30 %; HCO3 ABG 28.8 mEq/l (22.0-26.0); Methemoglobin ABG 0.2 %THb (0-1.5); Modified Allen's Test Pass; Oxygen Content ABG 14.9 %vol (16.0-22.0); Oxyhemoglobin 96.5 % THb (90.0-100.0); PCO2 ABG 39.6 mmHg (35.0-45.0); PO2 ABG 102.2 mmHg (80.0-100.0); PO2 FiO2 Ratio Arterial Blood 3.41 %; Reduced Hemoglobin 3.1 %THb (0-5.0); Site Drawn LEFT RADIAL; Total Hemoglobin 10.9 g/dL (12.0-18.0)
[2021-08-23 04:46] LABS: Arterial Blood Gas PEEP 5 cmH2O; Arterial Blood Gas Tidal Volume 380 ml
[2021-08-23 05:35] LABS: Hematocrit 32.9 % (37.0-47.0); Hemoglobin 10.4 g/dL (12.0-15.0); Mean Corpuscular HGB Conc 31.6 g/dl (32-36); Mean Corpuscular Hemoglobin 30.7 pg (26-34); Mean Corpuscular Volume 97.1 fl (80-100); Mean Platelet Volume 10.3 fl (7.4-10.4); Platelet Count Result 140 k/mm3 (150-375); Red Blood Count 3.39 M/mm3 (4.2-5.4); Red Cell Distribution Width 13.4 % (11.5-14.5); White Blood Count 8.9 K/mm3 (4.5-10.0)
[2021-08-23 05:46] LABS: Alanine Aminotransferase 170 U/L (6-35); Albumin Level 3.2 g/dL (3.5-5.1); Alkaline Phosphatase 78 U/L (38-126); Anion Gap 4 mmol/L (8-16); Aspartate Amino Transferase 102 U/L (14-36); Bilirubin,Total 0.5 mg/dL (0.2-1.3); Blood Urea Nitrogen 24 mg/dL (7-17); Calcium 8.4 mg/dL (8.4-10.2); Carbon Dioxide 32 mmol/L (22-30); Chloride 103 mmol/L (98-107); Estimated CRCL calculation 86 ml/min; Estimated Glomerular Filt Rate > 60; Glucose 112 mg/dL (65-110); Sodium 139 mmol/L (137-145); Triglycerides 147 mg/dL (<150)
[2021-08-23] MEDS: CENTRAL LINE FLUSH 10 ML IV PUSH ×3 (06:24→21:11)
[2021-08-23] MEDS: dexmedeTOMIDine 400 MCG/100 ML 400 MCG/100 ML BAG 10.44 MCG IV CONT (06:25)
[2021-08-23] MEDS: ENOXAPARIN 40 MG/0.4 ML SYRINGE SUB-Q (08:05)
[2021-08-23] MEDS: MINERAL OIL/WHITE PETROLATUM OINTMENT 1 APPLIC EACH EYE (08:05)
[2021-08-23] MEDS: PANTOPRAZOLE SODIUM IV 40 MG VIAL IV PUSH ×2 (08:06→21:11)
[2021-08-23] MEDS: methylPREDNISolone SOD SUCC 125 MG VIAL 80 MG IV PUSH (08:06)
[2021-08-23] MEDS: polyethylene glycoL 3350 17 GM POWD.PACK PO (08:06)
[2021-08-23 08:35] LABS: NT Pro B Type Natriuretic Pept 4530 pg/mL (5-100)
--- NOTE | 2021-08-23 08:45 | WPDINTPN ---
Progress Note: A&P Assessment and Plan (1) Acute respiratory failure: Qualifiers: Respiratory failure complication: unspecified whether with hypoxia or hypercapnia Qualified Code(s): J96.00 - Acute respiratory failure, unspecified whether with hypoxia or hypercapnia Code(s): J96.00 - Acute respiratory failure, unspecified whether with hypoxia or hypercapnia Status: Acute Assessment and Plan: Acute respiratory failure likely related to acute coronary syndrome, possible undiagnosed obstructive lung disease which is currently exacerbated -patient continues to have significant bilateral expiratory wheezes -currently intubated on CMV mode of ventilation, 35% FiO2 and PEEP of 5 with adequate O2 sats -chest x-ray reviewed -continue bronchodilators, steroids, antibiotics for possible undiagnosed obstructive lung disease exacerbation -sedated with propofol and Precedex -patient has failed her weaning trial due to tachypnea desaturation over last 2 days -placed on PSV trial again this morning. -ABG reviewed 08/18/2021: CTA chest IMPRESSION: 1. No pulmonary embolus. 2. Subsolid nodule of the right upper lobe which could be infectious or inflammatory. Follow-up CT in three months is recommended. 3. Left lower lobe granuloma. (2) Acute coronary syndrome with high troponin: Code(s): I24.9 - Acute ischemic heart disease, unspecified Status: Acute Assessment and Plan: Acute coronary syndrome with elevated troponins, likely STEMI late presentation -patient does not have any history of coronary artery disease -echocardiogram 1. Left ventricular chamber dimension is normal. 2. Left ventricular systolic function is severely reduced, estimated at 25-30% with akinetic apical and mid segments with relative sparing of the bases. Consider Takotsubo cardiomyopathy. . 3. There is mildly increased left ventricular wall thickness. 4. The left ventricular diastolic function is abnormal. 5. There is no thrombus visualized in the left ventricle . -Patient underwent cardiac catheterization and did not show any significant coronary artery disease confirming diagnosis of stress-induced cardiomyopathy. -continue ARB beta-veronica and Aldactone as started by blood pressure -aspirin was initially held due to upper GI bleed but has been resumed now (3) Cardiomyopathy: Qualifiers: Cardiomyopathy type: stress-induced Qualified Code(s): I51.81 - Takotsubo syndrome Code(s): I42.9 - Cardiomyopathy, unspecified Status: Acute Assessment and Plan: 08/18/2021 echocardiogram: 1. Left ventricular chamber dimension is normal. 2. Left ventricular systolic function is severely reduced, estimated at 25-30% with akinetic apical and mid segments with relative sparing of the bases. Consider Takotsubo cardiomyopathy. . 3. There is mildly increased left ventricular wall thickness. 4. The left ventricular diastolic function is abnormal. 5. There is no thrombus visualized in the left ventricle. Patient underwent cardiac catheterization and did not show any significant coronary artery disease. Impella but not be placed due to small caliber of patient's femoral arteries Cardiology does not recommend any further workup for cardiomyopathy. (4) Hypertension: Code(s): I10 - Essential (primary) hypertension Status: Acute Assessment and Plan: Currently on propofol, blood pressures are stable, will continue to monitor (5) Leukocytosis: Code(s): D72.829 - Elevated white blood cell count, unspecified Status: Acute Assessment and Plan: Likely reactive Patient is on ceftriaxone for COPD exacerbation Check sputum cultures which is pending Urine cultures growing E coli which is sensitive to Rocephin Check blood cultures if patient become febrile WBC count has normalized now (6) Hyperglycemia: Code(s): R73.9 - Hyperglycemia, unspecified Status: Acute
[2021-08-23 08:53] LABS: Fractional Inspired Oxygen 30 %; HCO3 ABG 30.9 mEq/l (22.0-26.0); Oxygen Content ABG 14.8 %vol (16.0-22.0); Oxygen Saturation ABG 96.9 % (95.0-100.0); PCO2 ABG 41.3 mmHg (35.0-45.0); PO2 ABG 83.4 mmHg (80.0-100.0); PO2 FiO2 Ratio Arterial Blood 2.78 %; pH ABG 7.492 (7.350-7.450)
[2021-08-23 08:56] LABS: Device VENTILATOR; Modified Allen's Test Pass; Site Drawn LEFT RADIAL
[2021-08-23 08:57] LABS: Arterial Blood Gas PEEP 5 cmH2O; Arterial Blood Gas Vent Mode SPONTANEOUS
[2021-08-23 08:58] LABS: Arterial Blood Gas Pressure Support 5 cmH2O
--- NOTE | 2021-08-23 09:19 | PM.PNCARD ---
Progress Note: A&P Assessment and Plan (1) Cardiomyopathy: Qualifiers: Cardiomyopathy type: stress-induced Qualified Code(s): I51.81 - Takotsubo syndrome Code(s): I42.9 - Cardiomyopathy, unspecified Status: Acute Assessment and Plan: No LV gram and 2D echocardiogram suggestive of takotsubo cardiomyopathy. By history no significant infectious or traumatic precipitating event. Check troponin for downward trend. Even if alternative etiology for nonischemic cardiomyopathy wall motion abnormalities and abrupt onset remain most consistent with takotsubo process. patient remains critically ill but is slowly improving. Aspirin held secondary to concern for GI bleed per critical care. Currently holding coreg, entresto, spironolactone due to hypotension. (2) Acute respiratory failure: Qualifiers: Respiratory failure complication: unspecified whether with hypoxia or hypercapnia Qualified Code(s): J96.00 - Acute respiratory failure, unspecified whether with hypoxia or hypercapnia Code(s): J96.00 - Acute respiratory failure, unspecified whether with hypoxia or hypercapnia Status: Acute Assessment and Plan: Status post intubation. Minimal O2 supplementation yet persistent wheezing diffusely. Remains on steroids. Precise etiology remains unclear no improvement with bronchodilator therapy. She is not clinically volume overloaded at this time. Further management per Critical Care and Primary Service. (3) Elevated troponin: Code(s): R77.8 - Other specified abnormalities of plasma proteins Status: Acute Assessment and Plan: Unusual presentation with highly atypical symptoms without chest pain with echo and coronary angiography suggestive of takotsubo cardiomyopathy with normal coronary anatomy. (4) Hyperglycemia: Code(s): R73.9 - Hyperglycemia, unspecified Status: Acute Assessment and Plan: Workup per hospitalist service. stable. (5) Tobacco abuse: Code(s): Z72.0 - Tobacco use Status: Acute Assessment and Plan: Immediate and absolute smoking cessation counseling performed. Subjective Date/time seen: 08/23/21 09:19 Interval history: 60-year-old woman who presented with acute coronary syndrome and was found to be having Severe nonischemic cardiomyopathy suspect takotsubo stress cardiomyopathy, for COPD exacerbation and acute respiratory failure 08/21- remains intubated and ventilated. Blood pressure fluctuates. When she is sedated her blood pressure drops down significantly and then when the sedation is weaned off the blood pressure goes high. no arrhythmias on telemetry Date of service 08/22/2021: Remains intubated, she achieved ~60 minutes on her breathing trial today. BP better today but still relatively hypotensive. Date of service 08/23/2021: Remains intubated but responsive. Follows commands. No chest pain. Blood pressure is borderline Review of Systems Review of Systems: All systems reviewed & are unremarkable except as noted in HPI and below ROS unobtainable: Yes unobtainable due to endotracheal tube and unobtainable due to medical condition Constitutional: Constitutional: Reports as per HPI, Reports no additional constitutional complaints, Reports chills, Reports fatigue and Reports lethargy Eyes: Eyes: Reports as per HPI and Reports no additional eye complaints ENT: Reports system reviewed and no additional complaints, except as documented, Reports as per HPI and Reports nasal congestion Cardiovascular: Cardiovascular: Denies chest pain at rest, Denies chest pain with activity and Reports dyspnea Respiratory: Respiratory: Reports as per HPI, Reports no additional respiratory complaints, Denies cough, Reports dyspnea and Reports wheezing Gastrointestinal: Gastrointestinal: Reports as per HPI, Reports no additional gastrointestinal complaints, Denies abdominal pain, Denies melena, Denies hematoc
[2021-08-23 12:05] LABS: Glucose Point of Care 150 mg/dl (65-105)
--- NOTE | 2021-08-23 12:08 | PC.NURSE ---
[facility] flyer was given to patient.
[2021-08-23 19:10] LABS: Glucose Point of Care 90 mg/dl (65-105)
[2021-08-24] VITALS (28 sets, daily range): BP systolic 124–144; BP diastolic 72–91; PULSE 87–110; RESP 15–25; TEMP 36.5–37.1; O2SAT 94–100
[2021-08-24 00:07] LABS: Glucose Point of Care 104 mg/dl (65-105)
[2021-08-24] MEDS: IPRATROPIUM BR 0.02% INH SOLN 0.5 MG/2.5 ML VIAL INHALATION ×4 (01:54→21:00)
[2021-08-24] MEDS: ALBUTEROL SULFATE NEB 2.5 MG/0.5 ML INH 5 MG INHALATION ×4 (01:54→21:00)
[2021-08-24 05:25] LABS: Hematocrit 36.1 % (37.0-47.0); Hemoglobin 11.9 g/dL (12.0-15.0); Mean Corpuscular Hemoglobin 31.1 pg (26-34); Mean Corpuscular Volume 94.3 fl (80-100); Mean Platelet Volume 9.8 fl (7.4-10.4); Platelet Count Result 198 k/mm3 (150-375); Red Blood Count 3.83 M/mm3 (4.2-5.4); Red Cell Distribution Width 13.4 % (11.5-14.5); White Blood Count 10.2 K/mm3 (4.5-10.0)
[2021-08-24 05:35] LABS: Alveolar/Arterial O2 Gradient 45.6 mmHg; Base Excess ABG 5.7 mEq/l (+/-2.0); Carboxyhemoglobin 0.5 % THb (0-2.0); Fractional Inspired Oxygen 21 %; HCO3 ABG 27.9 mEq/l (22.0-26.0); Methemoglobin ABG 0.2 %THb (0-1.5); Oxygen Content ABG 17.8 %vol (16.0-22.0); Oxygen Saturation ABG 94.9 % (95.0-100.0); Oxyhemoglobin 92.3 % THb (90.0-100.0); PCO2 ABG 33.2 mmHg (35.0-45.0); PO2 ABG 64.4 mmHg (80.0-100.0); PO2 FiO2 Ratio Arterial Blood 3.07 %; Total Hemoglobin 13.7 g/dL (12.0-18.0)
[2021-08-24 05:37] LABS: Alanine Aminotransferase 177 U/L (6-35); Albumin Level 3.4 g/dL (3.5-5.1); Alkaline Phosphatase 94 U/L (38-126); Anion Gap 6 mmol/L (8-16); Aspartate Amino Transferase 66 U/L (14-36); Bilirubin,Total 0.7 mg/dL (0.2-1.3); Blood Urea Nitrogen 19 mg/dL (7-17); Calcium 8.5 mg/dL (8.4-10.2); Carbon Dioxide 32 mmol/L (22-30); Chloride 101 mmol/L (98-107); Estimated CRCL calculation 82 ml/min; Estimated Glomerular Filt Rate > 60; Glucose 90 mg/dL (65-110); Potassium 3.6 mmol/L (3.4-5.0); Sodium 139 mmol/L (137-145); Triglycerides 189 mg/dL (<150)
[2021-08-24 05:43] LABS: Device ROOM AIR; Modified Allen's Test Pass; Site Drawn LEFT RADIAL; pH ABG 7.543 (7.350-7.450)
[2021-08-24] MEDS: CENTRAL LINE FLUSH 10 ML IV PUSH ×3 (05:58→20:37)
[2021-08-24] MEDS: POTASSIUM CHLORIDE 20 MEQ TABLET 40 MEQ PO (07:55)
[2021-08-24] MEDS: predniSONE 20 MG TABLET 60 MG PO (07:56)
[2021-08-24] MEDS: PANTOPRAZOLE SODIUM IV 40 MG VIAL IV PUSH ×2 (08:04→20:37)
[2021-08-24] MEDS: ENOXAPARIN 40 MG/0.4 ML SYRINGE SUB-Q (08:04)
[2021-08-24] MEDS: carvediloL 3.125 MG TABLET PO ×2 (08:05→20:37)
--- NOTE | 2021-08-24 08:14 | WPDINTPN ---
Progress Note: A&P Assessment and Plan (1) Acute respiratory failure: Qualifiers: Respiratory failure complication: unspecified whether with hypoxia or hypercapnia Qualified Code(s): J96.00 - Acute respiratory failure, unspecified whether with hypoxia or hypercapnia Code(s): J96.00 - Acute respiratory failure, unspecified whether with hypoxia or hypercapnia Status: Acute Assessment and Plan: Acute respiratory failure likely related to acute coronary syndrome, possible undiagnosed obstructive lung disease which is currently exacerbated Extubated on 08/24 after discuss weaning trial. Patient failed her weaning trials for couple of days prior to that. Now doing well on room air Continue incentive spirometry Change Solu-Medrol to p.o. prednisone Continue bronchodilators Patient is self diuresing 08/18/2021: CTA chest IMPRESSION: 1. No pulmonary embolus. 2. Subsolid nodule of the right upper lobe which could be infectious or inflammatory. Follow-up CT in three months is recommended. 3. Left lower lobe granuloma. (2) Acute coronary syndrome with high troponin: Code(s): I24.9 - Acute ischemic heart disease, unspecified Status: Acute Assessment and Plan: Acute coronary syndrome with elevated troponins, likely STEMI late presentation -patient does not have any history of coronary artery disease -echocardiogram 1. Left ventricular chamber dimension is normal. 2. Left ventricular systolic function is severely reduced, estimated at 25-30% with akinetic apical and mid segments with relative sparing of the bases. Consider Takotsubo cardiomyopathy. . 3. There is mildly increased left ventricular wall thickness. 4. The left ventricular diastolic function is abnormal. 5. There is no thrombus visualized in the left ventricle . -Patient underwent cardiac catheterization and did not show any significant coronary artery disease confirming diagnosis of stress-induced cardiomyopathy. -resume beta-veronica and Aldactone and if patient's blood pressure tolerate add RUIZ-inhibitor -aspirin was initially held due to upper GI bleed but has been resumed now (3) Cardiomyopathy: Qualifiers: Cardiomyopathy type: stress-induced Qualified Code(s): I51.81 - Takotsubo syndrome Code(s): I42.9 - Cardiomyopathy, unspecified Status: Acute Assessment and Plan: 08/18/2021 echocardiogram: 1. Left ventricular chamber dimension is normal. 2. Left ventricular systolic function is severely reduced, estimated at 25-30% with akinetic apical and mid segments with relative sparing of the bases. Consider Takotsubo cardiomyopathy. . 3. There is mildly increased left ventricular wall thickness. 4. The left ventricular diastolic function is abnormal. 5. There is no thrombus visualized in the left ventricle. Patient underwent cardiac catheterization and did not show any significant coronary artery disease. Impella but not be placed due to small caliber of patient's femoral arteries Cardiology does not recommend any further workup for cardiomyopathy. (4) Hypertension: Code(s): I10 - Essential (primary) hypertension Status: Acute Assessment and Plan: Currently on propofol, blood pressures are stable, will continue to monitor (5) Leukocytosis: Code(s): D72.829 - Elevated white blood cell count, unspecified Status: Acute Assessment and Plan: Likely reactive Patient is on ceftriaxone for COPD exacerbation Check sputum cultures which is pending Urine cultures growing E coli which is sensitive to Rocephin Check blood cultures if patient become febrile WBC count has normalized now (6) Hyperglycemia: Code(s): R73.9 - Hyperglycemia, unspecified Status: Acute Assessment and Plan: Patient does not have any known diabetes hemoglobin A1c 4.9 Continue Accu-Cheks and sliding scale insulin (7) Upper GI bleed: Code(s): K92.2 - Cosmo
[2021-08-24 08:24] LABS: Glucose Point of Care 100 mg/dl (65-105)
[2021-08-24] MEDS: polyethylene glycoL 3350 17 GM POWD.PACK PO (09:19)
[2021-08-24] MEDS: SPIRONOLACTONE 25 MG TABLET PO (09:20)
--- NOTE | 2021-08-24 09:36 | PM.PNCARD ---
Progress Note: A&P Assessment and Plan (1) Cardiomyopathy: Qualifiers: Cardiomyopathy type: stress-induced Qualified Code(s): I51.81 - Takotsubo syndrome Code(s): I42.9 - Cardiomyopathy, unspecified Status: Acute Assessment and Plan: No LV gram and 2D echocardiogram suggestive of takotsubo cardiomyopathy. By history no significant infectious or traumatic precipitating event. Even if alternative etiology for nonischemic cardiomyopathy wall motion abnormalities and abrupt onset remain most consistent with takotsubo process. Extubated. Aspirin held secondary to concern for GI bleed per critical care. Resuming spironolactone and carvedilol today. Add Entresto or other ARB tomorrow as blood pressure tolerates. She has no insurance and there is some concern about affordability with Entresto. childcare worker to assess. Life vest to be ordered. KCL 20 mg p.o. x1 (2) Acute respiratory failure: Qualifiers: Respiratory failure complication: unspecified whether with hypoxia or hypercapnia Qualified Code(s): J96.00 - Acute respiratory failure, unspecified whether with hypoxia or hypercapnia Code(s): J96.00 - Acute respiratory failure, unspecified whether with hypoxia or hypercapnia Status: Acute Assessment and Plan: Status post intubation. Minimal O2 supplementation yet persistent wheezing diffusely. Remains on steroids. Precise etiology remains unclear no improvement with bronchodilator therapy. She is not clinically volume overloaded at this time. Further management per Critical Care and Primary Service. (3) Elevated troponin: Code(s): R77.8 - Other specified abnormalities of plasma proteins Status: Acute Assessment and Plan: Unusual presentation with highly atypical symptoms without chest pain with echo and coronary angiography suggestive of takotsubo cardiomyopathy with normal coronary anatomy. (4) Hyperglycemia: Code(s): R73.9 - Hyperglycemia, unspecified Status: Acute Assessment and Plan: Workup per hospitalist service. stable. (5) Tobacco abuse: Code(s): Z72.0 - Tobacco use Status: Acute Assessment and Plan: Immediate and absolute smoking cessation counseling performed. Subjective Date/time seen: 08/24/21 09:36 Interval history: 60-year-old woman who presented with acute coronary syndrome and was found to be having Severe nonischemic cardiomyopathy suspect takotsubo stress cardiomyopathy, for COPD exacerbation and acute respiratory failure 08/21- remains intubated and ventilated. Blood pressure fluctuates. When she is sedated her blood pressure drops down significantly and then when the sedation is weaned off the blood pressure goes high. no arrhythmias on telemetry Date of service 08/22/2021: Remains intubated, she achieved ~60 minutes on her breathing trial today. BP better today but still relatively hypotensive. Date of service 08/23/2021: Remains intubated but responsive. Follows commands. No chest pain. Blood pressure is borderline Date of service 08/24/2021: Extubated. A little wheezy but no chest pain Review of Systems Review of Systems: All systems reviewed & are unremarkable except as noted in HPI and below ROS unobtainable: Yes unobtainable due to endotracheal tube and unobtainable due to medical condition Constitutional: Constitutional: Reports as per HPI, Reports no additional constitutional complaints, Reports chills, Reports fatigue and Reports lethargy Eyes: Eyes: Reports as per HPI and Reports no additional eye complaints ENT: Reports system reviewed and no additional complaints, except as documented, Reports as per HPI and Reports nasal congestion Cardiovascular: Cardiovascular: Denies chest pain at rest, Denies chest pain with activity and Reports dyspnea Respiratory: Respiratory: Reports as per HPI, Reports no additional respiratory complaints, Denies cough, Reports
[2021-08-24 11:58] LABS: Glucose Point of Care 127 mg/dl (65-105)
--- NOTE | 2021-08-24 12:36 | PC.NURSE ---
[facility] faxed at [phone]. patient to go to IMU room 211.
--- NOTE | 2021-08-24 14:22 | PC.NURSE ---
Report given to FARZANEH Hooker with IMU department at 1356. All questions answered and plan of care reviewed. Patient to go to IMU room 211.
[2021-08-24 17:28] LABS: Glucose Point of Care 119 mg/dl (65-105)
[2021-08-25] VITALS (24 sets, daily range): BP systolic 91–137; BP diastolic 51–82; PULSE 74–107; RESP 16–20; TEMP 36.3–37.1; O2SAT 94–99
[2021-08-25] MEDS: IPRATROPIUM BR 0.02% INH SOLN 0.5 MG/2.5 ML VIAL INHALATION ×4 (01:53→20:30)
[2021-08-25] MEDS: ALBUTEROL SULFATE NEB 2.5 MG/0.5 ML INH 5 MG INHALATION ×4 (01:53→20:30)
[2021-08-25] MEDS: CENTRAL LINE FLUSH 10 ML IV PUSH ×3 (04:51→21:08)
[2021-08-25 05:02] LABS: Hematocrit 36.6 % (37.0-47.0); Mean Corpuscular HGB Conc 32.8 g/dl (32-36); Mean Corpuscular Hemoglobin 30.5 pg (26-34); Mean Corpuscular Volume 93.1 fl (80-100); Mean Platelet Volume 9.4 fl (7.4-10.4); Platelet Count Result 198 k/mm3 (150-375); Red Blood Count 3.93 M/mm3 (4.2-5.4); Red Cell Distribution Width 13.2 % (11.5-14.5); White Blood Count 10.2 K/mm3 (4.5-10.0)
[2021-08-25 05:12] LABS: Alanine Aminotransferase 122 U/L (6-35); Albumin Level 3.2 g/dL (3.5-5.1); Alkaline Phosphatase 82 U/L (38-126); Anion Gap 2 mmol/L (8-16); Aspartate Amino Transferase 45 U/L (14-36); Bilirubin,Total 0.7 mg/dL (0.2-1.3); Blood Urea Nitrogen 21 mg/dL (7-17); Calcium 8.6 mg/dL (8.4-10.2); Carbon Dioxide 30 mmol/L (22-30); Chloride 103 mmol/L (98-107); Estimated CRCL calculation 73 ml/min; Estimated Glomerular Filt Rate > 60; Glucose 93 mg/dL (65-110); Magnesium 2.1 mg/dL (1.6-2.3); Potassium 3.8 mmol/L (3.4-5.0); Sodium 135 mmol/L (137-145)
[2021-08-25 08:09] LABS: Glucose Point of Care 92 mg/dl (65-105)
[2021-08-25] MEDS: predniSONE 20 MG TABLET 60 MG PO (08:55)
[2021-08-25] MEDS: carvediloL 3.125 MG TABLET PO ×2 (08:55→21:08)
[2021-08-25] MEDS: ENOXAPARIN 40 MG/0.4 ML SYRINGE SUB-Q (08:55)
[2021-08-25] MEDS: PANTOPRAZOLE SODIUM IV 40 MG VIAL IV PUSH ×2 (08:56→21:08)
[2021-08-25] MEDS: SPIRONOLACTONE 25 MG TABLET PO (08:57)
[2021-08-25] MEDS: LOSARTAN POTASSIUM 12.5 MG TABLET PO (09:59)
[2021-08-25] MEDS: BENZOCAINE/MENTHOL (*BKC) 18 EA LOZENGE 1 LOZENGE PO (10:28)
[2021-08-25 12:26] LABS: Glucose Point of Care 129 mg/dl (65-105)
--- NOTE | 2021-08-25 12:42 | PM.IMPN ---
Progress Note: A&P Assessment and Plan (1) Acute respiratory failure: Qualifiers: Respiratory failure complication: unspecified whether with hypoxia or hypercapnia Qualified Code(s): J96.00 - Acute respiratory failure, unspecified whether with hypoxia or hypercapnia Code(s): J96.00 - Acute respiratory failure, unspecified whether with hypoxia or hypercapnia Status: Acute Assessment and Plan: Resolved, likely secondary to the new onset heart failure (2) Acute coronary syndrome with high troponin: Code(s): I24.9 - Acute ischemic heart disease, unspecified Status: Acute Assessment and Plan: Acute coronary syndrome with elevated troponins, likely STEMI late presentation -patient does not have any history of coronary artery disease -echocardiogram 1. Left ventricular chamber dimension is normal. 2. Left ventricular systolic function is severely reduced, estimated at 25-30% with akinetic apical and mid segments with relative sparing of the bases. Consider Takotsubo cardiomyopathy. . 3. There is mildly increased left ventricular wall thickness. 4. The left ventricular diastolic function is abnormal. 5. There is no thrombus visualized in the left ventricle . -Patient underwent cardiac catheterization and did not show any significant coronary artery disease confirming diagnosis of stress-induced cardiomyopathy. -resume beta-veronica and Aldactone and if patient's blood pressure tolerate add RUIZ-inhibitor -aspirin was initially held due to upper GI bleed but has been resumed now 08/25: Will restart blood pressure meds when able, aspirin restarted (3) Cardiomyopathy: Qualifiers: Cardiomyopathy type: stress-induced Qualified Code(s): I51.81 - Takotsubo syndrome Code(s): I42.9 - Cardiomyopathy, unspecified Status: Acute Assessment and Plan: 08/18/2021 echocardiogram: 1. Left ventricular chamber dimension is normal. 2. Left ventricular systolic function is severely reduced, estimated at 25-30% with akinetic apical and mid segments with relative sparing of the bases. Consider Takotsubo cardiomyopathy. . 3. There is mildly increased left ventricular wall thickness. 4. The left ventricular diastolic function is abnormal. 5. There is no thrombus visualized in the left ventricle. Patient underwent cardiac catheterization and did not show any significant coronary artery disease. Impella but not be placed due to small caliber of patient's femoral arteries Cardiology does not recommend any further workup for cardiomyopathy. 08/25: Life vest needed at discharge, care coordination arranging this, also recommend cardiac rehab and close outpatient follow-up with Cardiology for her recovery (4) Hypertension: Code(s): I10 - Essential (primary) hypertension Status: Acute Assessment and Plan: Currently on propofol, blood pressures are stable, will continue to monitor (5) Leukocytosis: Code(s): D72.829 - Elevated white blood cell count, unspecified Status: Acute Assessment and Plan: Likely reactive Patient is on ceftriaxone for COPD exacerbation Check sputum cultures which is pending Urine cultures growing E coli which is sensitive to Rocephin Check blood cultures if patient become febrile WBC count has normalized now 08/25: Resolved, likely secondary to UTI, patient now completed 8 day course of Rocephin, sputum cultures were negative (6) Hyperglycemia: Code(s): R73.9 - Hyperglycemia, unspecified Status: Acute Assessment and Plan: Patient does not have any known diabetes hemoglobin A1c 4.9 Continue Accu-Cheks and sliding scale insulin (7) Upper GI bleed: Code(s): K92.2 - Gastrointestinal hemorrhage, unspecified Status: Acute Assessment and Plan: OG suction was bloody this could be traumatic or secondary to anticoagulation the patient received Aspirin was held and patient was s
[2021-08-25 16:09] LABS: Glucose Point of Care 150 mg/dl (65-105)
[2021-08-25 20:04] LABS: Glucose Point of Care 169 mg/dl (65-105)
[2021-08-26] VITALS (26 sets, daily range): BP systolic 96–133; BP diastolic 55–68; PULSE 63–105; RESP 12–18; TEMP 36.6–36.7; O2SAT 96–97
[2021-08-26] MEDS: IPRATROPIUM BR 0.02% INH SOLN 0.5 MG/2.5 ML VIAL INHALATION ×4 (02:00→20:20)
[2021-08-26] MEDS: ALBUTEROL SULFATE NEB 2.5 MG/0.5 ML INH 5 MG INHALATION ×4 (02:00→20:20)
[2021-08-26 05:14] LABS: Hematocrit 34.2 % (37.0-47.0); Hemoglobin 11.2 g/dL (12.0-15.0); Mean Corpuscular HGB Conc 32.7 g/dl (32-36); Mean Corpuscular Hemoglobin 30.6 pg (26-34); Mean Corpuscular Volume 93.4 fl (80-100); Mean Platelet Volume 9.3 fl (7.4-10.4); Platelet Count Result 218 k/mm3 (150-375); Red Blood Count 3.66 M/mm3 (4.2-5.4); Red Cell Distribution Width 12.9 % (11.5-14.5); White Blood Count 9.3 K/mm3 (4.5-10.0)
[2021-08-26 05:36] LABS: Alanine Aminotransferase 81 U/L (6-35); Albumin Level 3.1 g/dL (3.5-5.1); Alkaline Phosphatase 66 U/L (38-126); Anion Gap 4 mmol/L (8-16); Aspartate Amino Transferase 28 U/L (14-36); Bilirubin,Total 0.6 mg/dL (0.2-1.3); Blood Urea Nitrogen 15 mg/dL (7-17); Calcium 8.1 mg/dL (8.4-10.2); Carbon Dioxide 28 mmol/L (22-30); Chloride 104 mmol/L (98-107); Estimated CRCL calculation 73 ml/min; Estimated Glomerular Filt Rate > 60; Glucose 103 mg/dL (65-110); Magnesium 2.1 mg/dL (1.6-2.3); Potassium 3.3 mmol/L (3.4-5.0); Sodium 136 mmol/L (137-145)
[2021-08-26] MEDS: CENTRAL LINE FLUSH 10 ML IV PUSH ×3 (05:39→21:43)
[2021-08-26 08:02] LABS: Glucose Point of Care 115 mg/dl (65-105)
[2021-08-26] MEDS: BENZOCAINE/MENTHOL (*BKC) 18 EA LOZENGE 1 LOZENGE PO (09:47)
[2021-08-26] MEDS: predniSONE 20 MG TABLET 60 MG PO (09:49)
[2021-08-26] MEDS: POTASSIUM CHLORIDE 20 MEQ TABLET 40 MEQ PO (09:49)
[2021-08-26] MEDS: SPIRONOLACTONE 25 MG TABLET PO (09:49)
[2021-08-26] MEDS: ENOXAPARIN 40 MG/0.4 ML SYRINGE SUB-Q (09:50)
[2021-08-26] MEDS: PANTOPRAZOLE SODIUM IV 40 MG VIAL IV PUSH ×2 (09:50→21:42)
[2021-08-26] MEDS: LOSARTAN POTASSIUM 12.5 MG TABLET PO (09:50)
[2021-08-26] MEDS: carvediloL 3.125 MG TABLET PO ×2 (09:50→21:42)
--- NOTE | 2021-08-26 10:19 | PM.PNCARD ---
Progress Note: A&P Assessment and Plan (1) Cardiomyopathy: Qualifiers: Cardiomyopathy type: stress-induced Qualified Code(s): I51.81 - Takotsubo syndrome Code(s): I42.9 - Cardiomyopathy, unspecified Status: Acute Assessment and Plan: No LV gram and 2D echocardiogram suggestive of takotsubo cardiomyopathy. By history no significant infectious or traumatic precipitating event. Even if alternative etiology for nonischemic cardiomyopathy wall motion abnormalities and abrupt onset remain most consistent with takotsubo process. She has been restarted on spironolactone and carvedilol Losartan added yesterday - she's had some mild hypotension. LifeVest ordered - social work to help with patient assistance qualification Plan for repeat echo in 4-6 weeks as outpatient (2) Acute respiratory failure: Qualifiers: Respiratory failure complication: unspecified whether with hypoxia or hypercapnia Qualified Code(s): J96.00 - Acute respiratory failure, unspecified whether with hypoxia or hypercapnia Code(s): J96.00 - Acute respiratory failure, unspecified whether with hypoxia or hypercapnia Status: Acute Assessment and Plan: Resolved. (3) Elevated troponin: Code(s): R77.8 - Other specified abnormalities of plasma proteins Status: Acute Assessment and Plan: Unusual presentation with highly atypical symptoms without chest pain with echo and coronary angiography suggestive of takotsubo cardiomyopathy with normal coronary anatomy. (4) Hyperglycemia: Code(s): R73.9 - Hyperglycemia, unspecified Status: Acute Assessment and Plan: Workup per hospitalist service. stable. (5) Tobacco abuse: Code(s): Z72.0 - Tobacco use Status: Acute Assessment and Plan: Immediate and absolute smoking cessation counseling performed. Subjective Date/time seen: 08/26/21 10:19 Interval history: 60-year-old woman who presented with acute coronary syndrome and was found to be having Severe nonischemic cardiomyopathy suspect takotsubo stress cardiomyopathy, for COPD exacerbation and acute respiratory failure 08/21- remains intubated and ventilated. Blood pressure fluctuates. When she is sedated her blood pressure drops down significantly and then when the sedation is weaned off the blood pressure goes high. no arrhythmias on telemetry Date of service 08/22/2021: Remains intubated, she achieved ~60 minutes on her breathing trial today. BP better today but still relatively hypotensive. Date of service 08/23/2021: Remains intubated but responsive. Follows commands. No chest pain. Blood pressure is borderline Date of service 08/24/2021: Extubated. A little wheezy but no chest pain Date of service 08/26/2021: Feels well this morning. Complaining of a sore throat. No chest pain or shortness of breath. Review of Systems Review of Systems: All systems reviewed & are unremarkable except as noted in HPI and below ROS unobtainable: Yes unobtainable due to endotracheal tube and unobtainable due to medical condition Constitutional: Constitutional: Reports as per HPI, Reports no additional constitutional complaints, Reports chills, Reports fatigue and Reports lethargy Eyes: Eyes: Reports as per HPI and Reports no additional eye complaints ENT: Reports system reviewed and no additional complaints, except as documented, Reports as per HPI and Reports nasal congestion Cardiovascular: Cardiovascular: Denies chest pain at rest, Denies chest pain with activity and Reports dyspnea Respiratory: Respiratory: Reports as per HPI, Reports no additional respiratory complaints, Denies cough, Reports dyspnea and Reports wheezing Gastrointestinal: Gastrointestinal: Reports as per HPI, Reports no additional gastrointestinal complaints, Denies abdominal pain, Denies melena, Denies hematochezia and Reports nausea Genitourinary: Genitourinary: Reports as per HPI
[2021-08-26 11:04] LABS: Glucose Point of Care 128 mg/dl (65-105)
--- NOTE | 2021-08-26 11:30 | PCPTNOTE ---
Patient declined treatment this session stating she did not feel well. Patient states she is fatigued and had bouts of coughing with activity earlier today. PT will continue to follow per plan of care.
--- NOTE | 2021-08-26 12:15 | PM.IMPN ---
Progress Note: A&P Assessment and Plan (1) Acute respiratory failure: Qualifiers: Respiratory failure complication: unspecified whether with hypoxia or hypercapnia Qualified Code(s): J96.00 - Acute respiratory failure, unspecified whether with hypoxia or hypercapnia Code(s): J96.00 - Acute respiratory failure, unspecified whether with hypoxia or hypercapnia Status: Acute Assessment and Plan: Status post admission to ICU required intubation Secondary to CHF exacerbation and COPD exacerbation Improved wean off oxygen (2) Acute coronary syndrome with high troponin: Code(s): I24.9 - Acute ischemic heart disease, unspecified Status: Acute Assessment and Plan: Acute coronary syndrome with elevated troponins, most likely related to NSTEMI type 2 secondary to demand ischemia secondary to takotsubo syndrome -patient does not have any history of coronary artery disease -echocardiogram 1. Left ventricular chamber dimension is normal. 2. Left ventricular systolic function is severely reduced, estimated at 25-30% with akinetic apical and mid segments with relative sparing of the bases. Consider Takotsubo cardiomyopathy. . 3. There is mildly increased left ventricular wall thickness. 4. The left ventricular diastolic function is abnormal. 5. There is no thrombus visualized in the left ventricle . -Patient underwent cardiac catheterization and did not show any significant coronary artery disease confirming diagnosis of stress-induced cardiomyopathy. -resume beta-veronica and Aldactone and if patient's blood pressure tolerate add RUIZ-inhibitor -aspirin was initially held due to upper GI bleed but has been resumed now -blood pressure medication adjusted by Cardiology (3) Cardiomyopathy: Qualifiers: Cardiomyopathy type: stress-induced Qualified Code(s): I51.81 - Takotsubo syndrome Code(s): I42.9 - Cardiomyopathy, unspecified Status: Acute Assessment and Plan: 08/18/2021 echocardiogram: 1. Left ventricular chamber dimension is normal. 2. Left ventricular systolic function is severely reduced, estimated at 25-30% with akinetic apical and mid segments with relative sparing of the bases. Consider Takotsubo cardiomyopathy. . 3. There is mildly increased left ventricular wall thickness. 4. The left ventricular diastolic function is abnormal. 5. There is no thrombus visualized in the left ventricle. Patient underwent cardiac catheterization and did not show any significant coronary artery disease. Impella but not be placed due to small caliber of patient's femoral arteries Cardiology does not recommend any further workup for cardiomyopathy. Plan for discharge on Life Vest once hemodynamically stable (4) Hypertension: Code(s): I10 - Essential (primary) hypertension Status: Acute Assessment and Plan: Currently on propofol, blood pressures are stable, will continue to monitor (5) Leukocytosis: Code(s): D72.829 - Elevated white blood cell count, unspecified Status: Acute Assessment and Plan: Likely reactive Patient is on ceftriaxone for COPD exacerbation Urine cultures growing E coli which is sensitive to Rocephin WBC count has normalized now Most likely secondary to UTI, patient now completed 8 day course of Rocephin, sputum cultures were negative (6) Hyperglycemia: Code(s): R73.9 - Hyperglycemia, unspecified Status: Acute Assessment and Plan: Patient does not have any known diabetes hemoglobin A1c 4.9 Continue Accu-Cheks and sliding scale insulin (7) Upper GI bleed: Code(s): K92.2 - Gastrointestinal hemorrhage, unspecified Status: Acute Assessment and Plan: OG suction was bloody this could be traumatic or secondary to anticoagulation the patient received Aspirin was held and patient was started on IV PPI q.12 hours Hemoglobin was monitored serially and remained stable 08/20
[2021-08-26 16:48] LABS: Glucose Point of Care 154 mg/dl (65-105)
[2021-08-26 20:42] LABS: Glucose Point of Care 107 mg/dl (65-105)
[2021-08-27] VITALS (12 sets, daily range): BP systolic 104–131; BP diastolic 53–64; PULSE 64–87; RESP 12–18; TEMP 36.3–37.1; O2SAT 95–100
[2021-08-27] MEDS: IPRATROPIUM BR 0.02% INH SOLN 0.5 MG/2.5 ML VIAL INHALATION ×2 (01:52→08:46)
[2021-08-27] MEDS: ALBUTEROL SULFATE NEB 2.5 MG/0.5 ML INH 5 MG INHALATION ×2 (01:52→08:46)
[2021-08-27 04:34] LABS: Hematocrit 32.3 % (37.0-47.0); Hemoglobin 10.6 g/dL (12.0-15.0); Mean Corpuscular HGB Conc 32.8 g/dl (32-36); Mean Corpuscular Hemoglobin 30.8 pg (26-34); Mean Corpuscular Volume 93.9 fl (80-100); Mean Platelet Volume 9.3 fl (7.4-10.4); Platelet Count Result 203 k/mm3 (150-375); Red Blood Count 3.44 M/mm3 (4.2-5.4); Red Cell Distribution Width 13.1 % (11.5-14.5); White Blood Count 10.7 K/mm3 (4.5-10.0)
[2021-08-27 04:48] LABS: Alanine Aminotransferase 77 U/L (6-35); Alkaline Phosphatase 62 U/L (38-126); Anion Gap 6 mmol/L (8-16); Aspartate Amino Transferase 34 U/L (14-36); Bilirubin,Total 0.4 mg/dL (0.2-1.3); Blood Urea Nitrogen 17 mg/dL (7-17); Calcium 8.3 mg/dL (8.4-10.2); Carbon Dioxide 25 mmol/L (22-30); Chloride 106 mmol/L (98-107); Estimated CRCL calculation 73 ml/min; Estimated Glomerular Filt Rate > 60; Glucose 89 mg/dL (65-110); Potassium 3.6 mmol/L (3.4-5.0); Sodium 137 mmol/L (137-145)
[2021-08-27] MEDS: CENTRAL LINE FLUSH 10 ML IV PUSH (04:49)
[2021-08-27 08:13] LABS: Glucose Point of Care 96 mg/dl (65-105)
[2021-08-27] MEDS: SPIRONOLACTONE 25 MG TABLET PO (09:10)
[2021-08-27] MEDS: carvediloL 3.125 MG TABLET PO (09:10)
[2021-08-27] MEDS: predniSONE 20 MG TABLET 60 MG PO (09:11)
[2021-08-27] MEDS: PANTOPRAZOLE SODIUM IV 40 MG VIAL IV PUSH (09:11)
[2021-08-27] MEDS: ENOXAPARIN 40 MG/0.4 ML SYRINGE SUB-Q (09:11)
[2021-08-27] MEDS: LOSARTAN POTASSIUM 12.5 MG TABLET PO (09:11)
--- NOTE | 2021-08-27 11:03 | PM.PNCARD ---
Progress Note: A&P Additional Plan 60-year-old lady with presumptive diagnosis of takotsubo stress cardiomyopathy. Patient had very poor left ventricular systolic function when evaluated in the record label intern. He is clinically stable in appears to be a good candidate for discharge today. Her current medical regimen should be continued as well as of course her life vest. I will see that she has an appointment to see me in the office in the next 2-3 weeks. We will be getting echocardiogram was in follow-up to assess for recovery and the need for ICD. Most of patient's with this particular diagnosis to experience good recovery a do not require permanent ICD implantation. Adelfo Roe MD [facility] Subjective Date/time seen: 08/27/21 11:03 Interval history: Follow-up visit in this 60-year-old woman with: Nonischemic cardiomyopathy presentation most consistent with takotsubo stress cardiomyopathy. Patient is asymptomatic this morning feels well hoping to be discharged. She is tolerating low doses of beta-veronica and losartan without hypotension. Will not be able to afford Entresto. LifeVest applied yesterday. Exam Const: General: comfortable and no acute distress HENMT: Mouth: Yes moist mucous membranes Eyes: Sclera: sclerae normal Pupils: Equal, round and reactive pupils present Neck: Neck: supple and no JVD Resp: Effort & Inspection: normal respiratory effort Auscultation: clear to auscultation bilaterally Other: No rales no rhonchi no wheeze Cardio: Rate: regular rate Rhythm: regular rhythm Other: No murmur or gallop today GI: GI Palp: Yes Soft to palpation Auscultation: normal bowel sounds Skin: General skin exam: normal color Neuro: Cognition (Neuro): normal cognition Extrem: General: normal to inspection Objective Data Vital Signs Vital Signs: Vital Signs - 24 hr 08/26/21 11:13 08/26/21 12:00 08/26/21 14:00 Temperature 36.7 C Pulse Rate 80 80 93 Respiratory Rate 16 16 Blood Pressure 133/63 Pulse Oximetry 96 96 08/26/21 15:15 08/26/21 15:22 08/26/21 15:58 Temperature 36.7 C Pulse Rate 89 95 74 Respiratory Rate 18 18 14 Blood Pressure 102/68 Pulse Oximetry 96 08/26/21 16:00 08/26/21 18:00 08/26/21 19:54 Temperature 36.6 C Pulse Rate 74 105 H 86 Respiratory Rate 14 16 Blood Pressure 107/61 Pulse Oximetry 96 97 08/26/21 20:00 08/26/21 20:21 08/26/21 20:31 Temperature Pulse Rate 87 89 88 Respiratory Rate 18 18 Blood Pressure Pulse Oximetry 08/26/21 22:00 08/27/21 00:00 08/27/21 01:52 Temperature 37.1 C Pulse Rate 83 78 87 Respiratory Rate 16 18 Blood Pressure 104/53 L Pulse Oximetry 98 08/27/21 02:00 08/27/21 02:01 08/27/21 04:00 Temperature 36.7 C Pulse Rate 77 81 69 Respiratory Rate 18 16 Blood Pressure 111/60 Pulse Oximetry 100 08/27/21 06:00 08/27/21 07:50 08/27/21 08:46 Temperature 36.7 C Pulse Rate 64 75 73 Respiratory Rate 12 18 Blood Pressure 118/64 Pulse Oximetry 95 08/27/21 09:10 Temperature Pulse Rate 80 Respiratory Rate Blood Pressure Pulse Oximetry Intake/Output Intake/Output: Intake & Output 08/24/21 08/25/21 08/26/21 08/27/21 23:59 23:59 23:59 23:59 Intake Total 735 278 6542 590 Output Total 1850 200 Balance -1347 716 1867 590 Meds/Results Medications: Active Medications Generic Name Dose Route Start Last Admin Trade Name Freq PRN Reason Stop Dose Admin Acetaminophen 650 mg 08/18/21 10:59 Acetaminophen 325 Mg Tablet PO Q4H PRN Mild Pain (1-3) or Fever Albuterol 5 mg 08/18/21 14:00 08/27/21 08:46 Albuterol Sulfate Neb 2.5 Mg/0.5 Ml Inh INHALATION 5 mg Q6HRT JENSEN Administration Benzocaine 1 lozenge 08/25/21 10:04 08/26/21 09:47 Benzocaine/Menthol (*Bkc) 18 Ea Lozenge PO 1 lozenge Q4HR PRN Administration Sore Throat Bisacodyl 10 mg 08/21/21 10:08 Bisacodyl 10 Mg Suppository RECTAL QAM PRN Constipati
--- NOTE | 2021-08-27 11:26 | PCPTNOTE ---
Patient declined PT stating she will be discharged today and is walking independently in the room. PT will plan to discharge patient from PT services.
[2021-08-27 12:21] LABS: Glucose Point of Care 107 mg/dl (65-105)
--- NOTE | 2021-08-27 13:17 | PM.DS ---
DS: Admitting Diagnosis Discharge Date 08/27/2021 Admitting Diagnosis Shortness of breath DS: Discharge Diagnosis Discharge Diagnosis (1) Acute respiratory failure: Qualifiers: Respiratory failure complication: unspecified whether with hypoxia or hypercapnia Qualified Code(s): J96.00 - Acute respiratory failure, unspecified whether with hypoxia or hypercapnia Code(s): J96.00 - Acute respiratory failure, unspecified whether with hypoxia or hypercapnia Status: Acute Assessment and Plan: Status post admission to ICU required intubation Secondary to CHF exacerbation and COPD exacerbation Improved wean off oxygen Patient will be discharged on in her oral treatment all of steroid Aldactone losartan beta-veronica (2) Acute coronary syndrome with high troponin: Code(s): I24.9 - Acute ischemic heart disease, unspecified Status: Acute Assessment and Plan: Acute coronary syndrome with elevated troponins, most likely related to NSTEMI type 2 secondary to demand ischemia secondary to takotsubo syndrome -patient does not have any history of coronary artery disease -echocardiogram 1. Left ventricular chamber dimension is normal. 2. Left ventricular systolic function is severely reduced, estimated at 25-30% with akinetic apical and mid segments with relative sparing of the bases. Consider Takotsubo cardiomyopathy. . 3. There is mildly increased left ventricular wall thickness. 4. The left ventricular diastolic function is abnormal. 5. There is no thrombus visualized in the left ventricle . -Patient underwent cardiac catheterization and did not show any significant coronary artery disease confirming diagnosis of stress-induced cardiomyopathy. -resume beta-veronica and Aldactone and if patient's blood pressure tolerate add RUIZ-inhibitor -blood pressure medication adjusted by Cardiology (3) Cardiomyopathy: Qualifiers: Cardiomyopathy type: stress-induced Qualified Code(s): I51.81 - Takotsubo syndrome Code(s): I42.9 - Cardiomyopathy, unspecified Status: Acute Assessment and Plan: 08/18/2021 echocardiogram: 1. Left ventricular chamber dimension is normal. 2. Left ventricular systolic function is severely reduced, estimated at 25-30% with akinetic apical and mid segments with relative sparing of the bases. Consider Takotsubo cardiomyopathy. . 3. There is mildly increased left ventricular wall thickness. 4. The left ventricular diastolic function is abnormal. 5. There is no thrombus visualized in the left ventricle. Patient underwent cardiac catheterization and did not show any significant coronary artery disease. Impella but not be placed due to small caliber of patient's femoral arteries Cardiology does not recommend any further workup for cardiomyopathy. Plan for discharge on Life Vest once hemodynamically stable (4) Hypertension: Code(s): I10 - Essential (primary) hypertension Status: Acute Assessment and Plan: Currently on propofol, blood pressures are stable, will continue to monitor (5) Leukocytosis: Code(s): D72.829 - Elevated white blood cell count, unspecified Status: Acute Assessment and Plan: Likely reactive Patient is on ceftriaxone for COPD exacerbation Urine cultures growing E coli which is sensitive to Rocephin WBC count has normalized now Most likely secondary to UTI, patient now completed 8 day course of Rocephin, sputum cultures were negative (6) Hyperglycemia: Code(s): R73.9 - Hyperglycemia, unspecified Status: Acute Assessment and Plan: Patient does not have any known diabetes hemoglobin A1c 4.9 Continue Accu-Cheks and sliding scale insulin (7) Upper GI bleed: Code(s): K92.2 - Gastrointestinal hemorrhage, unspecified Status: Acute Assessment and Plan: OG suction was bloody this could be traumatic or secondary to anticoagulation the patient received
== END 2021-08-27 14:12 | disposition home or self-care (01) | DRG 192 ==
LOC: ANHED 07:08 → ANHICU 11:54 → ANHIMU 08-25 10:12 → ANHICU 08-28 10:38 → ANHIMU 08-28 10:38
PROVIDERS: Emergency Medicine; Internal Medicine; Nurse Practitioner Adult Health; Specialist; Admitting Provider Internal Medicine; Emergency Provider Family Medicine; Visit Provider Student in an Organized Health Care Education/Training Program
PROC: 4A023N7 Measurement of Cardiac Sampling and Pressure, Left Heart, Percutaneous Approach (ICD-10-PCS; CPT 93452; principal; 2021-08-18 13:45)
DX: I51.81 Takotsubo syndrome (principal); J96.00 Acute respiratory failure, unspecified whether with hypoxia or hypercapnia; J44.1 Chronic obstructive pulmonary disease with (acute) exacerbation; K92.2 Gastrointestinal hemorrhage, unspecified; I11.0 Hypertensive heart disease with heart failure; I50.9 Heart failure, unspecified; E86.0 Dehydration; N39.0 Urinary tract infection, site not specified; B96.20 Unspecified Escherichia coli [E. coli] as the cause of diseases classified elsewhere; Z20.822 Contact with and (suspected) exposure to COVID-19; F17.210 Nicotine dependence, cigarettes, uncomplicated; R94.31 Abnormal electrocardiogram [ECG] [EKG]; R73.9 Hyperglycemia, unspecified; R77.8 Other specified abnormalities of plasma proteins; R74.8 Abnormal levels of other serum enzymes; R91.1 Solitary pulmonary nodule
CPT/HCPCS: 36415; 36569; 36600; 71045; 71275; 76705; 80053; 80061; 82375; 82805; 82948; 83036; 83050; 83605; 83735; 83880; 84100; 84478; 84484; 85014; 85018; 85025; 85027; 85610; 85730; 87070; 87077; 87086; 87088; 87186; 87205; 87502; 93005; 93306; 93458; 94002; 94003; 94640; 96360; 97110; 97116; 97162; 97166; 97530; 97535; 99291; A9270; C1751; C1887; C1894; C8929; C9113; C9803; J0461; J0583; J0696; J1644; J1650; J2250; J2704; J2920; J2930; J3010; J7030; J7040; J7060; J7512; Q9957; Q9967; U0003; U0005